=== PATIENT | male | born 1950 | race Caucasian/White ===

== ENCOUNTER 2025-04-24 05:34 | Emergency (ER) | payer OTHER, BC ==
--- OUTSIDE RECORDS SUMMARY | 2025-04-24 05:43 | XMS REPORT | Clinical Summary ---
Author Name Unknown Organization [facility] Address [address] [place] [address] Care Team Providers Care Vulnerability Researcher Name Role Phone Luís Saldana MD Unavailable Ester Iraheta MD Primary Care Provider Lauryn Ramirez RN Unavailable Erick Carson RN Unavailable [phone] Angela Morales MD Unavailable [phone] Althea Iglesias MD Unavailable [phone] Allergies No known active allergies Medications * This document contains information received from the source organization and may not represent a complete record from that organization. acetaminophen-code ine (TYLENOL #3) 300 mg-30 mg tablet Take 1 tablet by mouth every 4 (four) hours as needed. 02/14/20 24 Active atorvastatin (LIPITOR) 40 mg tablet Take 1 tablet (40 mg) by mouth at bedtime. Active cyanocobalamin, vitamin B-12, 1,000 mcg cap Take 1,000 capsules by mouth daily. Active Pepcid 20 mg tablet Take 1 tablet (20 mg) by mouth daily. 11/17/19 25 Active lisinopril (PRINIVIL,ZESTRIL) 10 mg tablet Take 1 tablet (10 mg) by mouth every morning. Active loperamide (IMODIUM) 2 mg capsule Take 1 capsule (2 mg) by mouth as needed. 04/10/20 24 Active magnesium oxide 420 mg tab Take 1 tablet by mouth daily. Active metFORMIN (GLUCOPHAGE) 500 mg tablet Take 1 tablet (500 mg) by mouth 2 (two) times a day with meals. Active OLANZapine (ZyPREXA) 2.5 mg tablet Take 1 tablet (2.5 mg) by mouth every 8 (eight) hours as needed for anxiety (claustrophob ia). 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 Please take 30 minute prior to imaging after notifying imaging staff and repeat if needed prior to scan. Please have caregiver with you. 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 Please take 30 minute prior to imaging after notifying imaging staff and repeat if needed prior to scan. Please have caregiver with you. 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 10 tablet 03/28/20 25 025 Active Problems Problem Noted Date Diagnosed Date Mediastinal lymphadenopathy 02/05/2025 Irritable bowel syndrome with diarrhea Gastroesophageal reflux disease 01/14/2025 Hearing loss 01/14/2025 Hyperlipidemia 01/14/2025 Hypertension 01/14/2025 Type 2 diabetes mellitus 01/14/2025 Neuroendocrine carcinoma, NOS of lower lobe, june g <Right> 01/14/2025 Encounters * This document contains information received from the source organization and may not represent a complete record from that organization. 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> (Primary Dx) 04/05/2025 Orders Only [facility] [address] [place] [address] Main dg, 9th [place] [address] Geena Lucas RN 04/05/2025 Documentation [facility] [address] [place] [address] Main dg, 9th [place] [address] FredoSona bach 04/04/2025 9:24 AM CDT - 04/04/2025 11:59 PM CDT Hospital Encounter [facility] [address] [place] [address] Main dg, 1st [place] [address] Ester Iraheta MD Neuroendocrine carcinoma, NOS of lower lobe, 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> Discharge Disposition: Home 04/04/2025 9:24 AM CDT - 04/04/2025 11:59 PM CDT Hospital Encounter [facility] [address] [place] [address] Main dg, 1st [place] [address] Ester Iraheta MD Alonzo, Andrew, JOSE LUIS Neuroendocrine carcinoma, NOS of lower lobe, 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> (Primary Dx) Discharge Disposition: Home 04/04/2025 8:30 AM CDT Follow-Up [facility] [address] [place] [address] Main dg, 9th [place] [address] Ester Iraheta MD Neuroendocrine carcinoma, NOS of lower lobe, 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> (Primary Dx) 04/04/2025 7:14 AM CDT - 04/04/2025 9:23 AM CDT Hospital Encounter [facility] [address] [place] [address] Ester Iraheta MD Neuroendocrine carcinoma, NOS of lower lobe, 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> Discharge Disposition: Home 04/04/2025 Orders Only [facility] [address] Main Bldg, 9th [place] [address] Geena Lucas RN 04/04/2025 Orders Only [facility] [address] Main Bldg, 9th [place] [address] Willis Davenport, Serge 04/04/2025 Orders Only [facility] [address] Main Bldg, 9th [place] [address] Herminia Santiago 04/04/2025 Travel 03/30/2025 Orders Only [facility] [address] Main Bldg, 9th [place] [address] Latonya Mayo APRN 03/29/2025 Orders Only [facility] [address] Main Bldg, 9th [place] [address] Sona Yoo 03/29/2025 Orders Only [facility] [address] Main Bldg, 9th [place] [address] Sona Yoo 03/29/2025 Orders Only [facility] [address] Main Bldg, 9th [place] [address] Sona Yoo 03/29/2025 Orders Only [facility] [address] Main Bldg, 9th [place] [address] John Tirado 03/29/2025 Orders Only [facility] [address] [place] [address] Main [facility], 9th [place] [address] Sona Yoo Neuroendocrine carcinoma, NOS of lower lobe, 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> (Primary Dx) 03/29/2025 Orders Only [facility] [address] [place] [address] Main [facility], 9th [place] [address] Sona Yoo 03/28/2025 11:33 AM CDT Hospital Encounter [facility] [address] [place] [address], 2nd [place] [address] Ester Iraheta MD Angeles, Ria Gatchalian, RN Neuroendocrine carcinoma, NOS of lower lobe, 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> (Primary Dx) Discharge Disposition: Home 03/28/2025 11:30 AM CDT Follow-Up [facility] [address] [place] [address], 9th [place] [address] Ester Iraheta MD Neuroendocrine carcinoma, NOS of lower lobe, 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> (Primary Dx) 03/28/2025 11:12 AM CDT - 03/28/2025 11:32 AM CDT Hospital Encounter [facility] [address] [place] [address], 8th [place] [address] Ester Iraheta MD Yu, Laurel Campbell, tamale maker Disposition: Home 03/28/2025 9:17 AM CDT - 03/28/2025 11:11 AM CDT Hospital Encounter [facility] [address] [place] [address], 8th [place] [address] Ester Iraheta MD Yu, Laurel Campbell, RN Encounter for adjustment and management of vascular access device (Primary Dx) Discharge Disposition: Home 03/28/2025 8:00 AM CDT - 03/28/2025 9:16 AM CDT Hospital Encounter [facility] [address] [place] [address] Ester Iraheta MD Neuroendocrine carcinoma, NOS of lower lobe, 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> Discharge Disposition: Home 03/28/2025 5:59 AM CDT - 03/28/2025 7:59 AM CDT Hospital Encounter [facility] [address] Main Bldg, 3rd [place] [address] Ester Iraheta MD Neuroendocrine carcinoma, NOS of lower lobe, 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> Discharge Disposition: Home 03/28/2025 Orders Only [facility] [address] Main Bldg, 9th [place] [address] Sona Yoo 03/28/2025 Documentation [facility] [address] Main Bldg, 9th [place] [address] Sona Yoo 03/28/2025 Orders Only [facility] [address] Main Bldg, 9th [place] [address] Latonya Mayo APRN Loss of appetite (Primary Dx) 03/28/2025 Travel 03/27/2025 Orders Only [facility] [address] Main Bldg, 9th [place] [address] Sona Yoo Neuroendocrine carcinoma, NOS of lower lobe, 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> (Primary Dx) 03/26/2025 Orders Only [facility] [address] Main Bldg, 9th [place] [address] Latonya Mayo APRN 03/26/2025 Orders Only [facility] [address] Main Bldg, 9th [place] [address] Chioma Sanchez Neuroendocrine carcinoma, NOS of lower lobe, 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> (Primary Dx) 03/23/2025 Documentation [facility] [address] Main Bldg, 9th [place] [address] Sona Yoo 03/23/2025 Orders Only [facility] [address] Main Bldg, 9th [place] [address] Geena Lucas RN 03/22/2025 [facility] [address] Main Bldg, 9th [place] [address] Latonya Mayo APRN Follow-up 03/16/2025 Orders Only [facility] [address] Main Bldg, 9th [place] [address] Ester Iraheta MD Neuroendocrine carcinoma, NOS of lower lobe, 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> 03/16/2025 Orders Only [facility] [address] Main Bldg, 9th [place] [address] Latonya Mayo APRN Neuroendocrine carcinoma, NOS of lower lobe, 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> 03/07/2025 7:45 AM CDT - 03/07/2025 9:29 AM CDT Hospital Encounter [facility] [address] [facility] [place] [address] Ester Iraheta MD Neuroendocrine carcinoma, NOS of lower lobe, 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> Discharge Disposition: Home 03/07/2025 Documentation [facility] [address] [facility] Main Bldg, 9th Floor Elevator B [place] [id number] Sona Yoo 03/07/2025 Documentation [facility] [address] [facility] Main Bldg, 9th Floor Elevator [address] [place] [id number] Sona Yoo 03/07/2025 Orders Only [facility] [facility] Main Bldg, 9th [place] [address] Ester Iraheta MD Neuroendocrine carcinoma, NOS of lower lobe, 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> (Primary Dx) 03/07/2025 Orders Only [facility] [address] [facility] [address] Main Bldg, 9th [place] [address] Willis Davenport, PharmD 03/07/2025 Travel 03/05/2025 Documentation [facility] [address] [facility] Main Bldg, 9th [place] [address] John Tirado 02/28/2025 2:30 PM CDT Follow-Up [facility] [address] Main Bldg, 9th [place] [address] Ester Iraheta MD Neuroendocrine carcinoma, NOS of lower lobe, 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> 02/28/2025 8:49 AM CDT - 02/28/2025 11:59 PM CDT Hospital Encounter [facility] [address] [place] [address], [facility] [place] [address] Ester Iraheta MD Neuroendocrine carcinoma, NOS of lower lobe, 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> Discharge Disposition: Home 02/28/2025 8:48 AM CDT Hospital Encounter [facility] [address] [place] [address], [facility] [place] [address] Ester Iraheta MD Palaganas-Vilori a, Antonietta, RN Neuroendocrine carcinoma, NOS of lower lobe, 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> Discharge Disposition: Home 02/28/2025 8:23 AM CDT - 02/28/2025 8:47 AM CDT Hospital Encounter [facility] [address] [place] [address] Ester Iraheta MD Neuroendocrine carcinoma, NOS of lower lobe, 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> Discharge Disposition: Home 02/28/2025 Travel 02/21/2025 9:47 AM CDT - 02/21/2025 11:59 PM CDT Hospital Encounter [facility] [address] [place] [address], [facility] [place] [address] Ester Iraheta MD Neuroendocrine carcinoma, NOS of lower lobe, 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> Discharge Disposition: Home 02/21/2025 9:47 AM CDT - 02/21/2025 11:59 PM CDT Hospital Encounter [facility] [address] [place] [address], [facility] [place] [address] Ester Iraheta MD Gellang, Adrian B Jr., RN Neuroendocrine carcinoma, NOS of lower lobe, 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> Discharge Disposition: Home 02/21/2025 9:32 AM CDT - 02/21/2025 9:46 AM CDT Hospital Encounter [facility] [address] [place] [address] Ester Iraheta MD Neuroendocrine carcinoma, NOS of lower lobe, 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> Discharge Disposition: Home 02/21/2025 Orders Only [facility] [address] Main Bldg, 9th [place] [address] Nelli Gamez APRN Neuroendocrine carcinoma, NOS of lower lobe, 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> (Primary Dx) 02/21/2025 Documentation [facility] [address] Main Bldg, 9th [place] [address] Sona Yoo 02/21/2025 Travel 02/17/2025 7:24 AM CDT - 02/17/2025 11:59 PM CDT Hospital Encounter [facility] [address] Main Bldg, 2nd [place] [address] Ester Iraheta MD Neuroendocrine carcinoma, NOS of lower lobe, 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> Discharge Disposition: Home 02/17/2025 Documentation [facility] [address] Main Bldg, 9th [place] [address] Sona Yoo 02/16/2025 Telephone [facility] [address] Main Bldg, 9th [place] [address] Erick Carson, RN Nurse Navigation 02/16/2025 Orders Only [facility] [address] Main Bldg, 9th [place] [address] Lulú Santos, RN 02/16/2025 Orders Only [facility] [address] Main Bldg, 9th [place] [address] Lulú Santos, RN 02/15/2025 Documentation [facility] [address] Main Bldg, 9th [place] [address] Sona Yoo 02/15/2025 Documentation [facility] [address] [place] [address] Main [facility], 9th [place] [address] Lulú Santos, JOSE LUIS 02/15/2025 Orders Only [facility] [address] [place] [address] Main [facility], 9th [place] [address] Lulú Santos, JOSE LUIS 02/14/2025 10:00 AM CDT Follow-Up [facility] [address] [place] [address] Main [facility], 9th [place] [address] Ester Iraheta MD Neuroendocrine carcinoma, NOS of lower lobe, 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> (Primary Dx) 02/14/2025 9:48 AM CDT - 02/14/2025 11:59 PM CDT Hospital Encounter [facility] [address] [place] [address] Main [facility], 1st [place] [address] Ester Iraheta MD Neuroendocrine carcinoma, NOS of lower lobe, 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> Discharge Disposition: Home 02/14/2025 9:48 AM CDT - 02/14/2025 11:59 PM CDT Hospital Encounter [facility] [address], 1st [place] [address] Ester Iraheta MD Le, Nica Q RN Neuroendocrine carcinoma, NOS of lower lobe, 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> (Primary Dx) Discharge Disposition: Home 02/14/2025 8:06 AM CDT - 02/14/2025 9:47 AM CDT Hospital Encounter [facility] [address] [place] [address] Main [facility], 2nd [place] [address] Ester Iraheta MD Neuroendocrine carcinoma, NOS of lower lobe, 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> Discharge Disposition: Home 02/14/2025 8:06 AM CDT - 02/14/2025 9:47 AM CDT Hospital Encounter [facility] [address] [place] [address] Ester Iraheta MD Neuroendocrine carcinoma, NOS of lower lobe, 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> Discharge Disposition: Home 02/14/2025 Orders Only [facility] [address] Main Bldg, 9th [place] [address] Lulú Santos, RN Neuroendocrine carcinoma, NOS of lower lobe, 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> (Primary Dx) 02/14/2025 Orders Only [facility] [address] Main Bldg, 9th [place] [address] Lulú Santos, RN 02/14/2025 Orders Only [facility] [address] Main Bldg, 9th [place] [address] Lulú Santos, RN 02/14/2025 Orders Only [facility] [address] Main Bldg, 9th [place] [address] Lulú Santos, RN 02/14/2025 Travel 02/13/2025 Orders Only [facility] [address] Main Bldg, 9th [place] [address] Lulú Santos, RN Neuroendocrine carcinoma, NOS of lower lobe, 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> (Primary Dx) 02/13/2025 Telephone [facility] [address] Main Bldg, 9th [place] [address] Erick Carson RN Nurse Navigation 02/13/2025 Orders Only [facility] [address] Main Bldg, 9th [place] [address] Giulia Mendoza MD 02/13/2025 Documentation [facility] [address] Main Bldg, 9th [place] [address] Lulú Santos, RN 02/13/2025 Orders Only [facility] [address] Main Bldg, 9th [place] [address] Sona Yoo 02/13/2025 Orders Only [facility] [address] Main Bldg, 9th [place] [address] Lulú Santos, RN 02/12/2025 Orders Only [facility] 4th [place] [address] Eunice Morales PA Preprocedural laboratory examination (Primary Dx) 02/12/2025 Orders Only [facility] [address], 9th [place] [address] Nelli Gamez APRN Neuroendocrine carcinoma, NOS of lower lobe, 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> (Primary Dx) 02/12/2025 Orders Only [facility] [address] Main Bldg, 9th [place] [address] Nelli Gamez APRN Neuroendocrine carcinoma, NOS of lower lobe, 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> (Primary Dx) 02/08/2025 2:24 PM CDT Anesthesia Event [facility] - Pulmonology Procedures [address] [facility] Main Bldg, 6th [place] [address] Diana Centeno MD 02/08/2025 1:30 PM CDT - 02/08/2025 3:00 PM CDT Surgery [facility] [address] [facility] Main Bldg, 6th [place] [address] Althea Iglesias MD BRONCHOSCOPY WITH EBUS 3 OR MORE NODES 02/08/2025 12:15 PM CDT - 02/08/2025 4:48 PM CDT Hospital Encounter [facility] - Pulmonology Procedures [address], 6th [place] [address] Althea Iglesias MD Neuroendocrine carcinoma, NOS of lower lobe, 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>; Mediastinal lymphadenopathy Discharge Disposition: Home 02/08/2025 9:04 AM CDT - 02/08/2025 12:14 PM CDT Hospital Encounter [facility] [address] [place] [address] Adam Segovia APRN Encounter for preprocedural laboratory examination Discharge Disposition: Home 02/08/2025 9:00 AM CDT Follow-Up [facility] [address] [place] [address], 9th [place] [address] Diony Watkins MD Neuroendocrine carcinoma, NOS of lower lobe, 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> 02/08/2025 7:00 AM CDT - 02/08/2025 9:03 AM CDT Hospital Encounter [facility] [address] [place] [address] Ester Iraheta MD Neuroendocrine carcinoma, NOS of lower lobe, 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> Discharge Disposition: Home 02/08/2025 Travel 02/07/2025 8:00 AM CDT POEM Appointments [facility] [address] [place] [address], 6th [place] [address] Ester Iraheta MD Encounter for preprocedural laboratory examination (Primary Dx) 02/07/2025 Orders Only [facility] [address] [place] [address], 9th [place] [address] Lulú Santos, JOSE LUIS 02/07/2025 Orders Only [facility] [address] [place] [address] Main [facility], 9th [place] [address] Lulú Santos, RN Neuroendocrine carcinoma, NOS of lower lobe, 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> (Primary Dx) 02/06/2025 3:30 PM CDT Consult [facility] - Pulmonology Medicine [address] [place] [address] Main [facility], 6th [place] [address] Althea Iglesias MD Mediastinal lymphadenopathy (Primary Dx); Neuroendocrine carcinoma, NOS of lower lobe, 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> 02/06/2025 Orders Only [facility] On[facility] [address] [place] [address] Main dg, 9th [place] [address] Lulú Santos, RN Neuroendocrine carcinoma, NOS of lower lobe, 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> (Primary Dx) 02/06/2025 Travel 02/05/2025 11:59 PM CDT Anesthesia Event [facility] [address] [place] [address] Main dg, 6th [place] [address] Nehal Diana, RN 02/05/2025 Prep for Procedure [facility] [address] [place] [address] Main dg, 6th Floor Elevator C [place], [place] [phone] Sandeep Garcia, RAT TRAPPER Neuroendocrine carcinoma, NOS of lower lobe, 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> (Primary Dx); Mediastinal lymphadenopathy 02/01/2025 10:04 AM CDT - 02/01/2025 11:59 PM CDT Hospital Encounter [facility] [address] [place] [address] Main dg, 7th [place] [address] Angela Morales MD Medical examination of participant in clinical research (Primary Dx); Neuroendocrine carcinoma, NOS of lower lobe, 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> Discharge Disposition: Home 02/01/2025 10:00 AM CDT Follow-Up [facility] [address] [place] [address] Main [facility], 9th Floor Elevator [address] [place], [place] [id number] Ester Iraheta MD Neuroendocrine carcinoma, NOS of lower lobe, 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> 02/01/2025 7:29 AM CDT - 02/01/2025 10:03 AM CDT Hospital Encounter [facility] [address] [place] [address] Main dg, 6th Floor Elevator C [place], [place] [phone] Ester Iraheta MD Neuroendocrine carcinoma, NOS of lower lobe, 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> Discharge Disposition: Home 02/01/2025 Orders Only [facility] [address] [place] [address] Main dg, 9th [place] [address] Nelli Gamez APRN Neuroendocrine carcinoma, NOS of lower lobe, 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> (Primary Dx) 02/01/2025 Orders Only [facility] [address] [place] [address], 9th [place] [address] Lulú Santos, RN Neuroendocrine carcinoma, NOS of lower lobe, 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> (Primary Dx) 02/01/2025 Travel 01/31/2025 Orders Only [facility] [address] [place] [address], 9th [place] [address] Lulú Santos, JOSE LUIS Neuroendocrine carcinoma, NOS of lower lobe, 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> (Primary Dx) 01/26/2025 1:30 PM CDT Ancillary Procedure PET Imaging [address] [place] [address], 6th [place] [address] Nelli Gamez APRN Neuroendocrine carcinoma, NOS of lower lobe, 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> 01/26/2025 11:57 AM CDT - 01/26/2025 11:59 PM CDT Hospital Encounter [facility] [address] [place] [address] Ester Iraheta MD Neuroendocrine carcinoma, NOS of lower lobe, 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> Discharge Disposition: Home 01/25/2025 9:11 AM CDT - 01/25/2025 11:59 PM CDT Hospital Encounter [facility] [address] [place] [address], 2nd [place] [address] Ester Iraheta MD Neuroendocrine carcinoma, NOS of lower lobe, 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> Discharge Disposition: Home 01/25/2025 9:11 AM CDT - 01/25/2025 11:59 PM CDT Hospital Encounter [facility] [address] [place] [address], 2nd [place] [address] Ester Iraheta MD Neuroendocrine carcinoma, NOS of lower lobe, 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> Discharge Disposition: Home 01/25/2025 9:11 AM CDT - 01/25/2025 11:59 PM CDT Hospital Encounter [facility] Card[facility] [address] [facility] Main dg, 2nd [place] [address] Ester Iraheta MD Neuroendocrine carcinoma, NOS of lower lobe, 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> Discharge Disposition: Home 01/25/2025 6:26 AM CDT - 01/25/2025 9:10 AM CDT Hospital Encounter Interventional Radiology [address] [facility], 4th [place] [address] Ester Iraheta MD [facility] Neuroendocrine carcinoma, NOS of lower lobe, 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> Discharge Disposition: Home 01/25/2025 6:10 AM CDT - 01/25/2025 6:25 AM CDT Hospital Encounter [facility] [address] [place] [address] Eunice Morales PA Cancer Discharge Disposition: Home 01/25/2025 Travel 01/24/2025 Results Follow-Up [facility] [address] [facility] Main Bldg, 9th [place] [address] Nelli Gamez, SHARMILA MRI Brain with and without Contrast 01/23/2025 Orders Only Interventional Radiology [address] [facility], 4th [place] [address] Eunice Morales PA Cancer (Primary Dx) 01/19/2025 Orders Only [facility] [address] [facility] Main Bldg, 9th [place] [address] Lulú Santos RN Neuroendocrine carcinoma, NOS of lower lobe, 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> (Primary Dx) 01/19/2025 Orders Only [facility] [address] Main Bldg, 9th [place] [address] Lulú Santos RN 01/19/2025 Documentation [facility] [address] Main Bldg, 9th [place] [address] Lulú Santos RN 01/18/2025 1:45 PM CDT Ancillary Procedure [facility] [address] [address] Nelli Gamez APRN Neuroendocrine carcinoma, NOS of lower lobe, 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> 01/17/2025 Orders Only [facility] - Medical Oncology [facility] Main [address]ldg, 9th [place] [address] Ester Iraheta MD 01/17/2025 Telephone [facility] [address] [place], [place] [address] Main dg, 9th [place] [address] Erick Carson RN Nurse Navigation 01/16/2025 Telephone [facility] [place] - Medical Oncology [address] [place], [place] [address] Main [facility], 9th [place] [address] Lauryn Ramirez RN 01/15/2025 1:30 PM CDT - 01/15/2025 11:59 PM CDT Hospital Encounter [facility] [address] [place], [place] [address] [place] [address] Nelli Gamez APRN Neuroendocrine carcinoma, NOS of lower lobe, lung <Right> Discharge Disposition: Home 01/15/2025 10:30 AM CDT Office Visit [facility] [address] [place], [place] [address] Main Bldg, 9th [place] [address] Ester Iraheta MD Neuroendocrine carcinoma, NOS of lower lobe, lung <Right> (Primary Dx) 01/15/2025 Documentation [facility] Main Bldg, 9th [place] [address] Eriberto Siu Jr. 01/15/2025 Travel 01/14/2025 Orders Only [facility] Oncology [facility] Main Bldg, 9th [place] [address] Vera Nelli Edie, RAT TRAPPER 01/10/2025 Lab Requisition [facility] Eriberto Montes MD Gallego Attis, Maria, MD 01/10/2025 [facility] [address] [place] [address] Main Bl, 9th [place] [address] Lauryn Ramirez, RN Nurse Navigation; Appointment 01/08/2025 2:00 PM CDT NPR [facility] PATIENT ACCESS Ester Iraheta MD 01/05/2025 9:25 PM CDT Ancillary Procedure [facility] [address] [place] [address] Ester Iraheta MD Cancer 01/05/2025 9:20 PM CDT Ancillary Procedure [facility] [address] [place] [address] Ester Iraheta MD Cancer 01/05/2025 9:15 PM CDT Ancillary Procedure [facility] [address] [place] [address] Ester Iraheta MD Cancer 01/05/2025 9:10 PM CDT Ancillary Procedure [facility] [address] [place] [address] Ester Iraheta MD Cancer 01/05/2025 9:05 PM CDT Ancillary Procedure [facility] [address] [place] [address] Ester Iraheta MD Cancer 01/05/2025 9:00 PM CDT Ancillary Procedure [facility] [address] [place] [address] Ester Iraheta MD Cancer 01/05/2025 8:55 PM CDT Ancillary Procedure [facility] [address] [place] [address] Ester Iraheta MD Cancer 01/05/2025 8:50 PM CDT Ancillary Procedure [facility] [address] [place] [address] Ester Iraheta MD Cancer 01/05/2025 8:45 PM CDT Ancillary Procedure [facility] [address] [place] [address] Ester Iraheta MD Cancer 01/05/2025 8:40 PM CDT Ancillary Procedure [facility] [address] [place] [address] Ester Iraheta MD Cancer 01/05/2025 8:35 PM CDT Ancillary Procedure [facility] [address] [place] [address] Ester Iraheta MD Cancer 01/05/2025 8:30 PM CDT Ancillary Procedure [facility] [address] [place] [address] Ester Iraheta MD Cancer 01/05/2025 8:25 PM CDT Ancillary Procedure [facility] [address] [place] [address] Ester Iraheta MD Cancer 01/05/2025 8:20 PM CDT Ancillary Procedure [facility] [address] [place] [address] Ester Iraheta MD Cancer 01/05/2025 8:15 PM CDT Ancillary Procedure [facility] [address] [place] [address] Ester Iraheta MD Cancer 01/05/2025 8:10 PM CDT Ancillary Procedure [facility] [address] [place] [address] Ester Iraheta MD Cancer 01/05/2025 8:05 PM CDT Ancillary Procedure [facility] [address] [place] [address] Ester Iraheta MD Cancer 01/05/2025 8:00 PM CDT Ancillary Procedure [facility] [address] [place] [address] Ester Iraheta MD Cancer 01/05/2025 Lab Requisition [facility] Eriberto Montes MD Schneider, Juan R Wilkes MD 01/05/2025 Lab Requisition [facility] CENTRAL AP LAB Eriberto Montes MD Schocker, Jason, MD 01/04/2025 Lab Requisition [facility] Eriberto Montes MD Moore, Vika Frye MD 01/03/2025 Documentation [facility] On[facility] [address] [facility] Main Bldg, 9th [place] [address] Lauryn Ramirez, JOSE LUIS 01/02/2025 Telephone [facility] [place] - Medical Oncology [address] [facility] Main Bldg, 9th [place] [address] Lauryn Ramirez, RN Nurse Navigation 01/01/2025 Community Orders [facility] Luís Saldana MD after 04/24/2024 Surgical History Surgery Date Site/Laterality Comments COLONOSCOPY UPPER GASTROINTESTINAL ENDOSCOPY APPENDECTOMY CHOLECYSTECTOMY BACK SURGERY LUNG SURGERY Right right lower INTRAOCULAR LENS INSERTION Bilateral CA [facility] EBUS GUIDED SAMPL 3/> NODE STATION/STRUX 02/08/2025 N/A Procedure: BRONCHOSCOPY WITH EBUS 3 OR MORE NODES; Surgeon: Althea Iglesias MD; Location: MAIN PULM PROC; Service: PULMONARY Medical History Medical History Date Comments Neuroendocrine carcinoma, NO S of lower lobe, lung <Right> 01/14/2025 diagnosed on year of 2023 Hypertension Dependence on supplemental oxygen for sleep apnea for 20 years Type 2 diabetes mellitus Hyperlipidemia Hearing loss Sleep apnea Family History Medical History Relation Name Comments Skin cancer Father Relation Name Status Comments Father Social History Tobacco Use Types Packs/Day Years Used Date Smoking Tobacco: Former Cigarettes 1 60.3 1 964 - 12/13/2023 Smokeless Tobacco: Never Alcohol Use Standard Drinks/Week Comments Yes 14 (1 standard drink = 0.6 oz pu re alcohol) Sex and Gender Information Value Date Recorded Sex Assigned at Male 01/08/2025 2:14 PM CDT Legal Sex Male 4:13 PM CDT Gender Identity Male 01/08/2025 2:14 PM CDT Sexual Orientation Straight 01/08/2025 2: 14 PM CDT Obstetrics History Last Filed Vital Signs Vital Sign Reading Time Taken Comments Blood Pressure 128/68 04/04/2025 8:45 PM CDT Pulse 94 04/04/2025 1:57 PM CDT Temperature 36.7 °C (98.1 °F) 04/04/2025 8:30 PM CD T Respiratory Rate 18 04/04/2025 8:30 PM CDT Oxygen Saturation 93% 04/04/2025 8:30 PM CDT Inhaled Oxygen Concentration - - Weight 74.6 kg (164 lb 7.4 oz) 04/04/2025 1:57 P M CDT Height 168 cm (5' 6.14") 01/26/2025 1:57 PM CDT 168cm Body Mass Index 26.43 01/26/2025 1:57 PM CDT Plan of Treatment Upcoming Encounters Date Type Department Care Team (Late st Contact Info) Description 04/27/2025 8:00 AM CDT Appointment [facility] [address] [place] [address] Ester Iraheta MD [address] [place] [phone] [email or web address] org 04/27/2025 9:00 AM CDT Follow-Up [facility] - [facility] Oncology [address] [place] [address], 9th [place] [address] Ester Iraheta MD [address] [place] [address] [email or web address] org 04/27/2025 11:15 AM CDT Appointment [facility] [address] [place] [address], 2nd [place] [address] Ester Iraheta MD [address] [place] [address] [email or web address]. org 04/27/2025 11:15 AM CDT Appointment [facility] [address] [place] [address], 2nd [place] [address] Ester Iraheta MD [address] [place] [address] [email or web address]. [facility] 05/18/2025 7:[address] Imaging and Diagnostic Imaging [address] [place] [address], 3rd [place] [address] Ester Iraheta MD [address] [place] [address] [email or web address]. [facility] 05/18/2025 10:30 AM CDT Appointment [facility] [address] [place] [address] Ester Iraheta MD [address] [place] [address] [email or web address]. [email or web address] 05/18/2025 11:30 AM CDT Follow-Up [facility] Oncology [address] [place] [address], 9th [place] [address] Ester Iraheta MD [address] [place] [address] [email or web address]. org 05/18/2025 12:45 PM CDT Appointment [facility] [address] [place] [address], 1st [place] [address] Ester Iraheta MD [address] [place] [address] [email or web address]. org 06/08/2025 8:30 AM CDT Appointment [facility] [address] [place] [address] Ester Iraheta MD [address] [place] [phone] [email or web address]. org 06/08/2025 9:30 AM CDT Follow-Up [facility] Oncology [address] [place] [address], 9th [place] [address] Ester Iraheta MD [address] [place] [address] [email or web address]. [email or web address] 06/08/2025 10:30 AM CDT Appointment [facility] [address] [place] [address], 1st [place] [address] Ester Iraheta MD [address] [place] [phone] [email or web address]. org 06/29/2025 8:30 AM CDT Appointment [facility] [address] [place] [address] Ester Iraheta MD [address] [place] [address] [email or web address]. org 06/29/2025 9:30 AM CDT Follow-Up [facility] [place] - Medical Oncology [address] [place] [address], 9th [place] [address] Ester Iraheta MD [address] [place] [address] [email or web address]. org 06/29/2025 10:45 AM CDT Appointment [facility] [address] [place] [address], 1st [place] [address] Ester Iraheta MD [address] [place] [address] [email or web address]. [email or web address] 07/20/2025 8:30 AM PAINTER SET Appointment [facility] [address] [place] [address] Ester Iraheta MD [address] [place] [address] [email or web address]. [email or web address] 07/20/2025 9:30 AM PAINTER SET Follow-Up [facility] Oncology [address] [place] [address], 9th [place] [address] Ester Iraheta MD [address] [place] [address] [email or web address]. [email or web address] 07/20/2025 11:15 AM PAINTER SET Appointment [facility] [address] [place] [address], 1st [place] [address] Ester Iraheta MD [address] [place] [phone] [email or web address]. [email or web address] 08/10/2025 9:00 AM PAINTER SET Appointment [facility] [address] [place] [address] Ester Iraheta MD [address] [place] [address] [email or web address]. [facility] 08/10/2025 10:00 AM PAINTER SET Follow-Up [facility] [place] - Medical Oncology [address] [place] [address], 9th [place] [address] Ester Iraheta MD [address] [place] [phone] [email or web address]. [email or web address] 08/10/2025 11:00 AM PAINTER SET Appointment [facility] [address] [place] [address], 1st [place] [address] Ester Iraheta MD [address] [place] [phone] [email or web address]. [email or web address] 08/31/2025 9:00 AM PAINTER SET Appointment [facility] [address] [place] [address] Ester Iraheta MD [address] [place] [phone] [email or web address]. [facility] 08/31/2025 10:00 AM PAINTER SET Follow-Up [facility] Oncology [address] [place] [address], 9th [place] [address] Ester Iraheta MD [address] [place] [address] [email or web address]. [email or web address] 08/31/2025 11:15 AM PAINTER SET Appointment [facility] [address] [place] [address], 1st [place] [address] Ester Iraheta MD [address] [place] [address] [email or web address]. [facility] 09/21/2025 9:00 AM PAINTER SET Appointment [facility] [address] [place] [address] Ester Iraheta MD [address] [place] [phone] [email or web address]. [facility] 09/21/2025 10:00 AM PAINTER SET Follow-Up [facility] [place] - Medical Oncology [address] [place] [address], 9th [place] [address] Ester Iraheta MD [address] [place] [address] [email or web address]. [email or web address] 09/21/2025 11:00 AM PAINTER SET Appointment [facility] [address] [place] [address], 1st [place] [address] Ester Iraheta MD [address] [place] [phone] [email or web address]. [facility] 10/12/2025 9:00 AM PAINTER SET Appointment [facility] [address] [place] [address] Ester Iraheta MD [address] [place] [address] [email or web address]. [facility] 10/12/2025 10:00 AM PAINTER SET Follow-Up [facility] On[facility] [address] [place] [address], 9th [place] [address] Ester Iraheta MD [address] [place] [phone] [email or web address]. [facility] 10/12/2025 11:15 AM PAINTER SET Appointment [facility] [address] [place] [address], 1st [place] [address] Ester Iraheta MD [address] [place] [address] [email or web address]. 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 Device Identifier Shelf Expiration Date Model / Serial / Lot Port Chest Procedures Procedure Name Priority Date/Time Associated Diagnosis Comments .CBC Routine 04/04/2025 7:39 AM CDT Neuroendocrine carcinoma, NOS of lower lobe, lung <Right> URIC ACID Routine 04/04/2025 7:39 AM CDT Neuroendocrine carcinoma, NOS of lower lobe, lung <Right> PHOSPHORUS LEVEL Routine 04/04/2025 7:39 AM CDT Neuroendocrine carcinoma, NOS of lower lobe, lung <Right> MAGNESIUM LEVEL Routine 04/04/2025 7:39 AM CDT Neuroendocrine carcinoma, NOS of lower lobe, lung <Right> LACTATE DEHYDROGENASE Routine 04/04/2025 7:39 AM CDT Neuroendocrine carcinoma, NOS of lower lobe, lung <Right> CKMB Routine 04/04/2025 7:39 AM CDT Neuroendocrine carcinoma, NOS of lower lobe, lung <Right> CREATINE KINASE Routine 04/04/2025 7:39 AM CDT Neuroendocrine carcinoma, NOS of lower lobe, lung <Right> FRACTIONATED BILIRUBIN Routine 7:39 AM CDT Neuroendocrine carcinoma, NOS of lower lobe, lung <Right> COMPLETE BLOOD COUNT W/ DIFFERENTIAL Routine 04/04/2025 7:39 AM CDT Neuroendocrine carcinoma, NOS of lower lobe, lung <Right> COMPREHENSIVE METABOLIC PANEL Routine 04/04/2025 7:39 AM CDT Neuroendocrine carcinoma, NOS of lower lobe, lung <Right> QIAC SERVICES Routine 03/28/2025 11:02 AM CDT Neuroendocrine carcinoma, NOS of lower lobe, lung <Right> CT CHEST ABDOMEN PELVIS W CONTRAST Routine 03/28/2025 9:16 AM CDT Neuroendocrine carcinoma, NOS of lower lobe, lung <Right> .CBC Routine 03/28/2025 8:11 AM CDT Neuroendocrine carcinoma, NOS of lower lobe, lung <Right> RESEARCH PROTOCOL [id number] Routine 03/28/2025 8:11 AM CDT Neuroendocrine carcinoma, NOS of lower lobe, lung <Right> URIC ACID Routine 03/28/2025 8:11 AM CDT Neuroendocrine carcinoma, NOS of lower lobe, lung <Right> PHOSPHORUS LEVEL Routine 03/28/2025 8:11 AM CDT Neuroendocrine carcinoma, NOS of lower lobe, lung <Right> MAGNESIUM LEVEL Routine 03/28/2025 8:11 AM CDT Neuroendocrine carcinoma, NOS of lower lobe, lung <Right> LACTATE DEHYDROGENASE Routine 03/28/2025 8:11 AM CDT Neuroendocrine carcinoma, NOS of lower lobe, lung <Right> CKMB Routine 03/28/2025 8:11 AM CDT Neuroendocrine carcinoma, NOS of lower lobe, lung <Right> CREATINE KINASE Routine 03/28/2025 8:11 AM CDT Neuroendocrine carcinoma, NOS of lower lobe, lung <Right> FRACTIONATED BILIRUBIN Routine 8:11 AM CDT Neuroendocrine carcinoma, NOS of lower lobe, lung <Right> COMPLETE BLOOD COUNT W/ DIFFERENTIAL Routine 03/28/2025 8:11 AM CDT Neuroendocrine carcinoma, NOS of lower lobe, lung <Right> COMPREHENSIVE METABOLIC PANEL Routine 03/28/2025 8:11 AM CDT Neuroendocrine carcinoma, NOS of lower lobe, lung <Right> POC CREATININE Routine 03/28/2025 7:59 AM CDT .CBC Routine 03/07/2025 8:31 AM CDT Neuroendocrine carcinoma, NOS of lower lobe, lung <Right> URIC ACID Routine 03/07/2025 8:31 AM CDT Neuroendocrine carcinoma, NOS of lower lobe, lung <Right> PHOSPHORUS LEVEL Routine 03/07/2025 8:31 AM CDT Neuroendocrine carcinoma, NOS of lower lobe, lung <Right> MAGNESIUM LEVEL Routine 03/07/2025 8:31 AM CDT Neuroendocrine carcinoma, NOS of lower lobe, lung <Right> LACTATE DEHYDROGENASE Routine 03/07/2025 8:31 AM CDT Neuroendocrine carcinoma, NOS of lower lobe, lung <Right> CKMB Routine 03/07/2025 8:31 AM CDT Neuroendocrine carcinoma, NOS of lower lobe, lung <Right> CREATINE KINASE Routine 03/07/2025 8:31 AM CDT Neuroendocrine carcinoma, NOS of lower lobe, lung <Right> FRACTIONATED BILIRUBIN Routine 8:31 AM CDT Neuroendocrine carcinoma, NOS of lower lobe, lung <Right> COMPLETE BLOOD COUNT W/ DIFFERENTIAL Routine 03/07/2025 8:31 AM CDT Neuroendocrine carcinoma, NOS of lower lobe, lung <Right> COMPREHENSIVE METABOLIC PANEL Routine 03/07/2025 8:31 AM CDT Neuroendocrine carcinoma, NOS of lower lobe, lung <Right> .CBC Routine 02/28/2025 8:41 AM CDT Neuroendocrine carcinoma, NOS of lower lobe, lung <Right> URIC ACID Routine 02/28/2025 8:41 AM CDT Neuroendocrine carcinoma, NOS of lower lobe, lung <Right> PHOSPHORUS LEVEL Routine 02/28/2025 8:41 AM CDT Neuroendocrine carcinoma, NOS of lower lobe, lung <Right> MAGNESIUM LEVEL Routine 02/28/2025 8:41 AM CDT Neuroendocrine carcinoma, NOS of lower lobe, lung <Right> LACTATE DEHYDROGENASE Routine 02/28/2025 8:41 AM CDT Neuroendocrine carcinoma, NOS of lower lobe, lung <Right> CKMB Routine 02/28/2025 8:41 AM CDT Neuroendocrine carcinoma, NOS of lower lobe, lung <Right> CREATINE KINASE Routine 02/28/2025 8:41 AM CDT Neuroendocrine carcinoma, NOS of lower lobe, lung <Right> FRACTIONATED BILIRUBIN Routine 8:41 AM CDT Neuroendocrine carcinoma, NOS of lower lobe, lung <Right> COMPLETE BLOOD COUNT W/ DIFFERENTIAL Routine 02/28/2025 8:41 AM CDT Neuroendocrine carcinoma, NOS of lower lobe, lung <Right> COMPREHENSIVE METABOLIC PANEL Routine 02/28/2025 8:41 AM CDT Neuroendocrine carcinoma, NOS of lower lobe, lung <Right> .CBC Routine 02/21/2025 9:43 AM CDT Neuroendocrine carcinoma, NOS of lower lobe, lung <Right> URIC ACID Routine 02/21/2025 9:43 AM CDT Neuroendocrine carcinoma, NOS of lower lobe, lung <Right> PHOSPHORUS LEVEL Routine 02/21/2025 9:43 AM CDT Neuroendocrine carcinoma, NOS of lower lobe, lung <Right> MAGNESIUM LEVEL Routine 02/21/2025 9:43 AM CDT Neuroendocrine carcinoma, NOS of lower lobe, lung <Right> LACTATE DEHYDROGENASE Routine 02/21/2025 9:43 AM CDT Neuroendocrine carcinoma, NOS of lower lobe, lung <Right> CKMB Routine 02/21/2025 9:43 AM CDT Neuroendocrine carcinoma, NOS of lower lobe, lung <Right> CREATINE KINASE Routine 02/21/2025 9:43 AM CDT Neuroendocrine carcinoma, NOS of lower lobe, lung <Right> FRACTIONATED BILIRUBIN Routine 9:43 AM CDT Neuroendocrine carcinoma, NOS of lower lobe, lung <Right> COMPLETE BLOOD COUNT W/ DIFFERENTIAL Routine 02/21/2025 9:43 AM CDT Neuroendocrine carcinoma, NOS of lower lobe, lung <Right> COMPREHENSIVE METABOLIC PANEL Routine 02/21/2025 9:43 AM CDT Neuroendocrine carcinoma, NOS of lower lobe, lung <Right> VERIFY CATHETER TIP PLACEMENT Routine 02/14/2025 10:00 AM CDT Neuroendocrine carcinoma, NOS of lower lobe, lung <Right> .CBC Routine 02/14/2025 8:18 AM CDT Neuroendocrine carcinoma, NOS of lower lobe, lung <Right> URIC ACID Routine 02/14/2025 8:18 AM CDT Neuroendocrine carcinoma, NOS of lower lobe, lung <Right> PHOSPHORUS LEVEL Routine 02/14/2025 8:18 AM CDT Neuroendocrine carcinoma, NOS of lower lobe, lung <Right> MAGNESIUM LEVEL Routine 02/14/2025 8:18 AM CDT Neuroendocrine carcinoma, NOS of lower lobe, lung <Right> LACTATE DEHYDROGENASE Routine 02/14/2025 8:18 AM CDT Neuroendocrine carcinoma, NOS of lower lobe, lung <Right> CKMB Routine 02/14/2025 8:18 AM CDT Neuroendocrine carcinoma, NOS of lower lobe, lung <Right> CREATINE KINASE Routine 02/14/2025 8:18 AM CDT Neuroendocrine carcinoma, NOS of lower lobe, lung <Right> FRACTIONATED BILIRUBIN Routine 8:18 AM CDT Neuroendocrine carcinoma, NOS of lower lobe, lung <Right> COMPLETE BLOOD COUNT W/ DIFFERENTIAL Routine 02/14/2025 8:18 AM CDT Neuroendocrine carcinoma, NOS of lower lobe, lung <Right> COMPREHENSIVE METABOLIC PANEL Routine 02/14/2025 8:18 AM CDT Neuroendocrine carcinoma, NOS of lower lobe, lung <Right> CTRC EKG, 12-LEAD Routine 02/14/2025 Neuroendocrine carcinoma, NOS of lower lobe, lung <Right> CTRC EKG, 12-LEAD Routine 02/14/2025 Neuroendocrine carcinoma, NOS of lower lobe, lung <Right> PATHOLOGY BIOPSY INTERPRETATION Routine 02/08/2025 3:39 PM CDT Neuroendocrine carcinoma, NOS of lower lobe, lung <Right> Mediastinal lymphadenopathy CYTOLOGY IMAGE-GUIDED FNA INTERPRETATION Routine 02/08/2025 3:07 PM CDT Neuroendocrine carcinoma, NOS of lower lobe, lung <Right> Mediastinal lymphadenopathy CYTOLOGY IMAGE-GUIDED FNA INTERPRETATION Routine 02/08/2025 3:04 PM CDT Neuroendocrine carcinoma, NOS of lower lobe, lung <Right> Mediastinal lymphadenopathy CYTOLOGY IMAGE-GUIDED FNA INTERPRETATION Routine 02/08/2025 2:51 PM CDT Neuroendocrine carcinoma, NOS of lower lobe, lung <Right> Mediastinal lymphadenopathy CA [facility] EBUS GUIDED SAMPL 3/> NODE STATION/STRUX 02/08/2025 2:24 PM CDT Neuroendocrine carcinoma, NOS of lower lobe, lung <Right> Mediastinal lymphadenopathy POC GLUCOSE SCREEN Routine 02/08/2025 1: 23 PM CDT URINALYSIS WITH MICROSCOPIC IF INDICATED Routine 02/08/2025 9:17 AM CDT Neuroendocrine carcinoma, NOS of lower lobe, lung <Right> .CBC Routine 02/08/2025 9:17 AM CDT Neuroendocrine carcinoma, NOS of lower lobe, lung <Right> URINALYSIS WITH MICROSCOPIC IF INDICATED Routine 02/08/2025 9:17 AM CDT Neuroendocrine carcinoma, NOS of lower lobe, lung <Right> TOTAL PROTEIN Routine 02/08/2025 9:17 AM CDT Neuroendocrine carcinoma, NOS of lower lobe, lung <Right> SODIUM LEVEL Routine 02/08/2025 9:17 AM CDT Neuroendocrine carcinoma, NOS of lower lobe, lung <Right> PROTHROMBIN TIME Routine 02/08/2025 9:17 AM CDT Neuroendocrine carcinoma, NOS of lower lobe, lung <Right> PHOSPHORUS LEVEL Routine 02/08/2025 9:17 AM CDT Neuroendocrine carcinoma, NOS of lower lobe, lung <Right> MAGNESIUM LEVEL Routine 02/08/2025 9:17 AM CDT Neuroendocrine carcinoma, NOS of lower lobe, lung <Right> LACTATE DEHYDROGENASE Routine 02/08/2025 9:17 AM CDT Neuroendocrine carcinoma, NOS of lower lobe, lung <Right> GLUCOSE, RANDOM Routine 02/08/2025 9:17 AM CDT Neuroendocrine carcinoma, NOS of lower lobe, lung <Right> FRACTIONATED BILIRUBIN Routine 9:17 AM CDT Neuroendocrine carcinoma, NOS of lower lobe, lung <Right> CREATININE Routine 02/08/2025 9:17 AM CDT Neuroendocrine carcinoma, NOS of lower lobe, lung <Right> CREATINE KINASE Routine 02/08/2025 9:17 AM CDT Neuroendocrine carcinoma, NOS of lower lobe, lung <Right> COMPLETE BLOOD COUNT W/ DIFFERENTIAL Routine 02/08/2025 9:17 AM CDT Neuroendocrine carcinoma, NOS of lower lobe, lung <Right> CHLORIDE LEVEL Routine 02/08/2025 9:17 AM CDT Neuroendocrine carcinoma, NOS of lower lobe, lung <Right> CALCIUM LEVEL Routine 02/08/2025 9:17 AM CDT Neuroendocrine carcinoma, NOS of lower lobe, lung <Right> BLOOD UREA NITROGEN Routine 02/08/2025 9 :17 AM CDT Neuroendocrine carcinoma, NOS of lower lobe, lung <Right> ASPARTATE AMINOTRANSFERASE Routine 02/08/2025 9:17 AM CDT Neuroendocrine carcinoma, NOS of lower lobe, lung <Right> APTT Routine 02/08/2025 9:17 AM CDT Neuroendocrine carcinoma, NOS of lower lobe, lung <Right> ALKALINE PHOSPHATASE Routine 02/08/2025 9:17 AM CDT Neuroendocrine carcinoma, NOS of lower lobe, lung <Right> ALBUMIN LEVEL Routine 02/08/2025 9:17 AM CDT Neuroendocrine carcinoma, NOS of lower lobe, lung <Right> ALANINE AMINOTRANSFERASE Routine 02/08/2025 9:17 AM CDT Neuroendocrine carcinoma, NOS of lower lobe, lung <Right> URIC ACID Routine 02/08/2025 9:17 AM CDT Neuroendocrine carcinoma, NOS of lower lobe, lung <Right> POTASSIUM LEVEL Routine 02/08/2025 9:17 AM CDT Neuroendocrine carcinoma, NOS of lower lobe, lung <Right> CKMB Routine 02/08/2025 9:17 AM CDT Neuroendocrine carcinoma, NOS of lower lobe, lung <Right> OCT, RETINA - OU - BOTH EYES Routine 02/01/2025 10:43 AM CDT Medical examination of participant in clinical research FUNDUS PHOTOS - OU - BOTH EYES Routine 02/01/2025 10:43 AM CDT Medical examination of participant in clinical research QIAC SERVICES Routine 02/01/2025 10:06 AM CDT Neuroendocrine carcinoma, NOS of lower lobe, lung <Right> ECHOCARDIOGRAM 2D COMPLETE Routine 02/01/2025 8:52 AM CDT Neuroendocrine carcinoma, NOS of lower lobe, lung <Right> PETCT F18 FDG (FLUORODEOXYGLUCOSE) WITHOUT CONTRAST Routine 01/26/2025 4:28 PM CDT Neuroendocrine carcinoma, NOS of lower lobe, lung <Right> URINALYSIS WITH MICROSCOPIC IF INDICATED Routine 01/26/2025 12:13 PM CDT Neuroendocrine carcinoma, NOS of lower lobe, lung <Right> URINALYSIS WITH MICROSCOPIC IF INDICATED Routine 01/26/2025 12:13 PM CDT Neuroendocrine carcinoma, NOS of lower lobe, lung <Right> .CBC Routine 01/26/2025 12:05 PM CDT Neuroendocrine carcinoma, NOS of lower lobe, lung <Right> HIV-1/-2 AG AND AB SCREEN, P Routine 01/26/2025 12:05 PM CDT Neuroendocrine carcinoma, NOS of lower lobe, lung <Right> CKMB Routine 01/26/2025 12:05 PM CDT Neuroendocrine carcinoma, NOS of lower lobe, lung <Right> ALKALINE PHOSPHATASE Routine 01/26/2025 12:05 PM CDT Neuroendocrine carcinoma, NOS of lower lobe, lung <Right> ALANINE AMINOTRANSFERASE Routine 01/26/2025 12:05 PM CDT Neuroendocrine carcinoma, NOS of lower lobe, lung <Right> URIC ACID Routine 01/26/2025 12:05 PM CDT Neuroendocrine carcinoma, NOS of lower lobe, lung <Right> TOTAL PROTEIN Routine 01/26/2025 12:05 PM CDT Neuroendocrine carcinoma, NOS of lower lobe, lung <Right> SODIUM LEVEL Routine 01/26/2025 12:05 PM CDT Neuroendocrine carcinoma, NOS of lower lobe, lung <Right> PROTHROMBIN TIME Routine 01/26/2025 12:0 5 PM CDT Neuroendocrine carcinoma, NOS of lower lobe, lung <Right> POTASSIUM LEVEL Routine 01/26/2025 12:05 PM CDT Neuroendocrine carcinoma, NOS of lower lobe, lung <Right> PHOSPHORUS LEVEL Routine 01/26/2025 12:0 5 PM CDT Neuroendocrine carcinoma, NOS of lower lobe, lung <Right> MAGNESIUM LEVEL Routine 01/26/2025 12:05 PM CDT Neuroendocrine carcinoma, NOS of lower lobe, lung <Right> LACTATE DEHYDROGENASE Routine 01/26/2025 12:05 PM CDT Neuroendocrine carcinoma, NOS of lower lobe, lung <Right> HIV 1 RNA PCR QUANTITATIVE Routine 01/26/2025 12:05 PM CDT Neuroendocrine carcinoma, NOS of lower lobe, lung <Right> HEPATITIS B SURFACE ANTIGEN Routine 01/26/2025 12:05 PM CDT Neuroendocrine carcinoma, NOS of lower lobe, lung <Right> HEPATITIS C VIRUS ANTIBODY Routine 01/26/2025 12:05 PM CDT Neuroendocrine carcinoma, NOS of lower lobe, lung <Right> HEPATITIS B CORE ANTIBODY Routine 01/26/2025 12:05 PM CDT Neuroendocrine carcinoma, NOS of lower lobe, lung <Right> GLUCOSE, RANDOM Routine 01/26/2025 12:05 PM CDT Neuroendocrine carcinoma, NOS of lower lobe, lung <Right> FRACTIONATED BILIRUBIN Routine 12:05 PM CDT Neuroendocrine carcinoma, NOS of lower lobe, lung <Right> CREATININE Routine 01/26/2025 12:05 PM CDT Neuroendocrine carcinoma, NOS of lower lobe, lung <Right> CREATINE KINASE Routine 01/26/2025 12:05 PM CDT Neuroendocrine carcinoma, NOS of lower lobe, lung <Right> COMPLETE BLOOD COUNT W/ DIFFERENTIAL Routine 01/26/2025 12:05 PM CDT Neuroendocrine carcinoma, NOS of lower lobe, lung <Right> CHLORIDE LEVEL Routine 01/26/2025 12:05 PM CDT Neuroendocrine carcinoma, NOS of lower lobe, lung <Right> CALCIUM LEVEL Routine 01/26/2025 12:05 PM CDT Neuroendocrine carcinoma, NOS of lower lobe, lung <Right> BLOOD UREA NITROGEN Routine 01/26/2025 1 2:05 PM CDT Neuroendocrine carcinoma, NOS of lower lobe, lung <Right> ASPARTATE AMINOTRANSFERASE Routine 01/26/2025 12:05 PM CDT Neuroendocrine carcinoma, NOS of lower lobe, lung <Right> APTT Routine 01/26/2025 12:05 PM CDT Neuroendocrine carcinoma, NOS of lower lobe, lung <Right> ALBUMIN LEVEL Routine 01/26/2025 12:05 PM CDT Neuroendocrine carcinoma, NOS of lower lobe, lung <Right> IR US EXTREMITY LIMITED 60 Routine 01/25/2025 8:19 AM CDT Neuroendocrine carcinoma, NOS of lower lobe, lung <Right> PROTHROMBIN TIME Routine 01/25/2025 6:23 AM CDT Cancer EKG, 12-LEAD (SCHEDULED) Routine 01/25/2025 Neuroendocrine carcinoma, NOS of lower lobe, lung <Right> EKG, 12-LEAD (SCHEDULED) Routine 01/25/2025 Neuroendocrine carcinoma, NOS of lower lobe, lung <Right> EKG, 12-LEAD (SCHEDULED) Routine 01/25/2025 Neuroendocrine carcinoma, NOS of lower lobe, lung <Right> MRI BRAIN W WO CONTRAST Routine 01/19/20 25 3:38 PM CDT Neuroendocrine carcinoma, NOS of lower lobe, lung <Right> .CBC Routine 01/15/2025 1:39 PM CDT Neuroendocrine carcinoma, NOS of lower lobe, lung <Right> MAGNESIUM LEVEL Routine 01/15/2025 1:39 PM CDT Neuroendocrine carcinoma, NOS of lower lobe, lung <Right> PHOSPHORUS LEVEL Routine 01/15/2025 1:39 PM CDT Neuroendocrine carcinoma, NOS of lower lobe, lung <Right> THYROID STIMULATING HORMONE Routine 01/15/2025 1:39 PM CDT Neuroendocrine carcinoma, NOS of lower lobe, lung <Right> FREE THYROXINE Routine 01/15/2025 1:39 PM CDT Neuroendocrine carcinoma, NOS of lower lobe, lung <Right> COMPLETE BLOOD COUNT W/ DIFFERENTIAL Routine 01/15/2025 1:39 PM CDT Neuroendocrine carcinoma, NOS of lower lobe, lung <Right> COMPREHENSIVE METABOLIC PANEL Routine 01/15/2025 1:39 PM CDT Neuroendocrine carcinoma, NOS of lower lobe, lung <Right> RESEARCH PROTOCOL [id number] Routine 01/15/2025 1:39 PM CDT Neuroendocrine carcinoma, NOS of lower lobe, lung <Right> OSI PET CT SKULL TO MID THIGH Routine 11/10/2024 4:39 PM CDT Cancer PATHOLOGY OUTSIDE INTERPRETATION Routine 08/11/[address] SKULL TO MID THIGH Routine 07/31/2024 4:39 PM PAINTER SET Cancer OSI CT CHEST ABDOMEN PELVIS Routine 07/12/2024 4:41 PM PAINTER SET Cancer OSI CHEST Routine 05/12/2024 8:50 PM CDT Cancer after 04/24/2024 Results * (ABNORMAL) .CBC (04/04/2025 7:39 AM [facility]) Only the most recent of9 resultswithin the time period is included. White Blood Cell 7.6 4.1 - 10.5 K/uL 04/04/2025 8:00 AM [facility] Red Blood Cell 3.44(L) 4.30 - 6.04 M/uL 04/04/2025 8:00 AM [facility] Hemoglobin 10.9(L) 13.3 - 17.4 g/dL 04/04/2025 8:00 AM [facility] Hematocrit 31.5(L) 39.5 - 51.8 % 04/04/2025 8:00 AM [facility] Mean Cell Volume 92 82 - 99 fL 04/04/2025 8:00 AM [facility] Mean Cell Hemoglobin 31.7 26.6 - 33.2 pg 04/04/2025 8:00 AM [facility] Mean Cell Hemoglobin Concentration 34.6 31.1 - 35.2 g/dL 04/04/2025 8:00 AM [facility] RDW-SD 53.6(H) 37.5 - 49.7 fL 04/04/2025 8:00 AM [facility] Red Cell Diameter Width 16.1(H) 11.6 - 15.5 % 04/04/2025 8:00 AM [facility] Platelet 376 160 - 397 K/uL 04/04/2025 8:00 AM [facility] Mean Platelet Volume 8.9(L) 9.1 - 12.6 fL 04/04/2025 8:00 AM [facility] INRBC 0.0 0.0 - 0.1 /100 WBC 04/04/2025 8:00 AM [facility] Comment: The INRBC value reflects the enumeration of nucleated red blood cells contained in a 200uL sample of whole blood analyzed by the instrument. This value may differ from the NRBC value reported in a manual diff, which is based on a 100 cell differential. Neutrophil % 72.9(H) 43.2 - 72.7 % 04/04/2025 8:00 AM CDT [facility] Lymphocyte % 13.9(L) 16.8 - 46.2 % 04/04/2025 8:00 AM CDT [facility] Monocyte % 10.1 5.1 - 12.5 % 04/04/2025 8:00 AM CDT [facility] Eosinophil % 1.4 0.4 - 6.3 % 04/04/2025 8:00 AM CDT [facility] Basophil % 0.5 0.2 - 1.4 % 04/04/2025 8:00 AM CDT [facility] IGRE % 1.2 0.1 - 1.5 % 04/04/2025 8:00 AM CDT [facility] Comment:The IGRE% includes M etamyelocytes, Myelocytes and Promyelocytes. Neutrophil Abs 5.54 1.95 - 7.25 K/uL 04/04/2025 8:00 AM CDT [facility] Lymphocyte Abs 1.06 1.01 - 3.24 K/uL 04/04/2025 8:00 AM CDT [facility] Monocyte Abs 0.77 0.24 - 0.85 K/uL 04/04/2025 8:00 AM CDT [facility] Eosinophil Abs 0.11 0.02 - 0.50 K/uL 04/04/2025 8:00 AM CDT [facility] Basophil Abs 0.04 0.02 - 0.09 K/uL 04/04/2025 8:00 AM CDT [facility] IG Abs 0.09 0.01 - 0.12 K/uL 04/04/2025 8:00 AM CDT [facility] Blood Venous blood specimen / Unknown Port / Unknown 04/04/2025 7:39 AM CDT 04/04/2025 7:51 AM CDT us Ester Iraheta MD LAB BLOOD ORDERABLES Final Re sult [facility] [address] [place] [address], * Fractionated Bilirubin (04/04/2025 7:39 AM CDT) Only the most recent of8 resultswithin the time period is included. Bilirubin Direct 0.2 0.0 - 0.2 mg/dL 04/04/2025 8:33 AM CDT [facility] Comment:Indocyanine Green (I CG) may cause falsely elevated bilirubin results. Total and direct bilirubin must not be measured from samples containing indocyanine green. Bilirubin Indirect 0.3 0.0 - 1.0 mg/dL 04/04/2025 8:33 AM CDT [facility] Bilirubin Total 0.5 0.0 - 1.2 mg/dL 04/04/2025 8:33 AM CDT [facility] Comment: Indocyanine Green (ICG) may cause falsely elevated bilirubin results. Total and direct bilirubin must not be measured from samples containing indocyanine green. False elevation of total bilirubin can be seen in patients with IgG concentrations above 28 g/L. Indocyanine Green (ICG) may cause falsely elevated bilirubin results. Total and direct bilirubin must not be measured from samples containing indocyanine green. False elevation of total bilirubin can be seen in patients with IgG concentrations above 28 g/L. Blood Venous blood specimen / Unknown Port / Unknown 04/04/2025 7:39 AM CDT 04/04/2025 7:51 AM CDT us Ester Iraheta MD LAB BLOOD ORDERABLES Final Re sult Performing Organization Address City/State/[facility] Co de Phone Number [phone] [place] [address], [place] * (ABNORMAL) Comprehensive Metabolic Panel (04/04/2025 7:39 AM CDT) Only the most recent of7 resultswithin the time period is included. Bilirubin Total 0.5 0.0 - 1.2 mg/dL 04/04/2025 8:33 AM CDT [facility] Comment:Indocyanine Green (I CG) may cause falsely elevated bilirubin results. Total and direct bilirubin must not be measured from samples containing indocyanine green. False elevation of total bilirubin can be seen in patients with IgG concentrations above 28 g/L. eGFR 87 >=60 mL/min/1. 73 sq. m 04/04/2025 8:33 AM [facility] Comment: The eGFRcr is calculated with the 2020 CKD-EPI creatinine equation using creatinine, patient's age, and sex for adults 18 years of age and older. Other factors, especially muscle mass, may affect accuracy and need to be considered. According to the Kidney Disease: Improving Global Outcomes (KDIGO) CKD Work Group 2012 Clinical Practice Guideline, chronic kidney disease (CKD) is defined as the abnormalities of kidney structure or function, present for more than 3 months, with implications for health. CKD should be classified by cause, GFR category, and albuminuria category. KDIGO guidelines provide the following GFR categories. Stage / Description / GFR mL/min/1.73 m2: G1* / Normal or high / >= 90 G2* / Mildly decreased / 60-89 G3a / Mildly to moderately decreased / 45-59 G3b / Moderately to severely decreased / 30-44 G4 / Severely decreased / 15-29 G5 / Kidney failure / <15 *In the absence of evidence of kidney damage, neither G1 nor G2 fulfill criteria for CKD. Tot Protein 6.6 6.4 - 8.3 gm/dL 04/04/2025 8:33 AM T [facility] Calcium Level Total 10.0 8.2 - 10.2 mg/dL 04/04/2025 8:33 AM T [facility] Alkaline Phosphatase 84 40 - 129 U/L 04/04/2025 8:33 AM T [facility] Albumin Level 3.5 3.5 - 5.2 gm/dL 04/04/2025 8:33 AM T [facility] AST 22 <=40 U/L 04/04/2025 8:33 AM T [facility] ALT 28 <=41 U/L 04/04/2025 8:33 AM [facility] Sodium Level 132(L) 136 - 145 mmol/L 04/04/2025 8:33 AM [facility] Potassium Level 4.3 3.4 - 4.5 mmol/L 04/04/2025 8:33 AM [facility] Chloride 98 98 - 107 mmol/L 04/04/2025 8:33 AM [facility] CO2 24 22 - 29 mmol/L 04/04/2025 8:33 AM CDT [facility] Anion Gap 10 4 - 14 mmol/L 04/04/2025 8:33 AM CDT [facility] Creatinine 0.93 0.67 - 1.17 mg/dL 04/04/2025 8:33 AM CDT [facility] BUN 10 6 - 23 mg/dL 04/04/2025 8:33 AM CDT [facility] Glucose Level 109(H) 70 - 99 mg/dL 04/04/2025 8:33 AM CDT [facility] Comment: Effective 03/25/16, the glucose reference intervals have been updated based on [place] [employer] guidelines (Standards of Medical Care in Diabetes 2016. Diabetes Care 2016; 39: S13-S22). Fasting blood glucose: Normal: 70-99 mg/dL Impaired fasting glucose (increased risk for diabetes or pre-diabetes): 100-125 mg/dL Diabetes mellitus: >/=126 mg/dL Random blood glucose: Normal: 70-199 mg/dL Note: Random glucose >100 mg/dL is associated with increased risk for diabetes. Blood Venous blood specimen / Unknown Port / Unknown 04/04/2025 7:39 AM CDT 04/04/2025 7:51 AM CDT us Ester Iraheta MD LAB BLOOD [place]AB[place] [address], * Uric Acid (04/04/2025 7:39 AM CDT) Only the most recent of8 resultswithin the time period is included. Uric Acid 6.3 3.4 - 7.0 mg/dL 04/04/2025 8:33 AM CDT [facility] Blood Venous blood specimen / Unknown Port / Unknown 04/04/2025 7:39 AM CDT 04/04/2025 7:51 AM CDT us Ester Iraheta MD LAB BLOOD ORDERABLES Final Re sult Performing Organization Address [facility] Co de Phone Number [address] [address], [place] * Phosphorus (04/04/2025 7:39 AM CDT) Only the most recent of9 resultswithin the time period is included. Phosphorus Level 3.3 2.5 - 4.5 mg/dL 04/04/2025 8:33 AM CDT [facility] Blood Venous blood specimen / Unknown Port / Unknown 04/04/2025 7:39 AM CDT 04/04/2025 7:51 AM CDT Ester Iraheta MD LAB BLOOD ORDERABLES Final Re sult Performing Organization Address [facility] [place] [address], [place] * Magnesium (04/04/2025 7:39 AM CDT) Only the most recent of9 resultswithin the time period is included. Magnesium Level 1.7 1.6 - 2.6 mg/dL 04/04/2025 8:33 AM CDT [facility] Blood Venous blood specimen / Unknown Port / Unknown 04/04/2025 7:39 AM CDT 04/04/2025 7:51 AM CDT Ester Iraheta MD LAB BLOOD ORDERABLES Final Re sult Performing Organization Address City/[facility]/[place] [address], [place] * LDH (04/04/2025 7:39 AM CDT) Only the most recent of8 resultswithin the time period is included. LDH 172 135 - 225 U/L 04/04/2025 8:33 AM CDT [facility] Blood Venous blood specimen / Unknown Port / Unknown 04/04/2025 7:39 AM CDT 04/04/2025 7:51 AM CDT Narrative [facility] - 04/04/2025 8:33 AM CDT Results greater than 1651 U/L may not be reliable due to matrix effect with extended dilution as it exceeds the heavy repairer's recommended limit. Caution should be exercised when interpreting such values and done in conjunction with clinical context. Ester Iraheta MD LAB BLOOD [place] [address], [place] * CKMB (04/04/2025 7:39 AM CDT) Only the most recent of8 resultswithin the time period is included. CKMB 2.5 <=10.4 ng/mL 04/04/2025 9:17 AM CDT [facility] Blood Venous blood specimen / Unknown Port / Unknown 04/04/2025 7:39 AM CDT 04/04/2025 7:51 AM CDT Ester Iraheta MD LAB BLOOD ORDERABLES Final Re sult Performing Organization Address City/[facility]/[place] [address] * (ABNORMAL) Creatine Kinase (04/04/2025 7:39 AM CDT) Only the most recent of8 resultswithin the time period is included. Creatine Kinase 35(L) 39 - 308 U/L 04/04/2025 9:17 AM CDT [facility] Blood Venous blood specimen / Unknown Port / Unknown 04/04/2025 7:39 AM CDT 04/04/2025 7:51 AM CDT Ester Iraheta MD LAB BLOOD ORDERAB[place] [address] * [facility] (03/28/2025 11:02 AM CDT) Only the most recent of2 resultswithin the time period is included. Anatomical Region Laterality Modality Other 03/28/2025 5:17 PM CDT Impressions 03/28/2025 5:17 PM CDT Tumor metrics have been completed. I personally reviewed these images and agree with the tumor metrics. Narrative 03/28/2025 5:17 PM CDT FULL RESULT: Examination: [facility] on 03/28/2025 17:17 PM Indication:Neuroendocrine carcinoma, NOS of lower lobe, lung <Right> Findings: Tumor metrics have been completed. Procedure Note Kelsea Carlos MD - 03/28/2025 FULL RESULT: Examination: [facility] on 03/28/2025 17:17 PM Indication:Neuroendocrine carcinoma, NOS of lower lobe, lung <Right> Findings: Tumor metrics have been completed. IMPRESSION: Tumor metrics have been completed. I personally reviewed these images andagree with the tumor metrics. us Ester Iraheta MD IMG [facility] ORDERABLES Final Res ult * CT Chest Abdomen Pelvis with Contrast (03/28/2025 9:16 AM CDT) Anatomical Region Laterality Modality Abdomen, Pelvis, Chest Computed Tomography 03/28/2025 10:2 1 AM CDT Impressions 03/28/2025 10:47 AM CDT 1. Stable appearance of the right lower lobectomy. 2. There is new, bilateral airspace disease, suspicious for pneumonia or pneumonitis. An area of clustered nodules in the right upper lobe likely represents small airways infection. 3. There is trace right pleural fluid with a possible low density nodule or focus of fluid in the posterior pleura. Attention on follow-up is recommended. 4. 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 5. Mediastinal and hilar lymph nodes are stable to slightly smaller. Prior pathology demonstrated noncaseating granulomatous inflammation. ACTIONABLE ITEMS/RECOMMENDATIONS*: None. *An Actionable Finding is a finding that may be unrelated to the original reason for imaging but potentially actionable, meaning further investigation may be necessary. The Actionable Findings Vigilance Unit (AFVU) assists medical providers with responding to additional radiologic findings that are unexpected and potentially actionable. Narrative 03/28/2025 10:47 AM CDT FULL RESULT: Examination: CT CHEST ABDOMEN PELVIS W CONTRAST on 03/28/2025 9:16 AM. Clinical History: Neuroendocrine carcinoma, NOS of lower lobe, lung <Right>. Right lower lobectomy in 2023. Indication: Restaging Scans. Comparison: PET/CT 01/26/2025. Technique: CT CHEST ABDOMEN PELVIS W CONTRAST. Findings: CHEST: Support devices: The right chest port terminates in the lower SVC. Lungs and Pleura: There has been a right lower lobectomy. The bronchial stumps are within normal limits. The central airways are otherwise clear. There is mild emphysema. There is new, diffuse bilateral groundglass opacity, greater in the lower lungs. There is a new, small area of clustered nodules in the right upper lobe (image 66). A groundglass nodule in the right upper lobe noted previously has resolved. Trace right pleural fluid is present. There is a small, nodular focus of low density soft tissue or fluid in the right posterior pleura measuring 12 mm (series 301, image 147). Cardiomediastinum: The heart size is normal. There is no pericardial effusion. There is calcific coronary atherosclerosis. Lymph nodes: Enlarged lymph nodes in the mediastinum and paige are stable to slightly smaller. For example, there is a 14 mm right paratracheal lymph node that previously measured 15 mm. There is a 10 mm AP window lymph node that previously measured 12 mm. ABDOMEN AND PELVIS: Hepatobiliary: Within normal limits Spleen: Within normal limits Pancreas: Within normal limits Adrenal Glands: Bilateral adrenal nodularity is stable. Kidneys, Ureters, Bladder: Within normal limits Gastrointestinal Tract: There are diverticula in the descending colon. Contrast reaches the colon. The small bowel is unremarkable. Pelvic Organs: Coarse calcification is again noted in the prostate gland. Peritoneum/Retroperitoneum: There is no free fluid in the abdomen or pelvis. There is stable, mild ectasia of the infrarenal abdominal aorta. Lymph Nodes: There are no enlarged lymph nodes in the abdomen or pelvis. MUSCULOSKELETAL: The sclerotic lesion in the right sacrum is stable. There is a stable sclerotic lesion in the T6 vertebral body. There is a stable lucent lesion with a compression deformity in the T9 vertebral body. Procedure Note Max, Trent, MD - 03/28/2025 FULL RESULT: Examination: CT CHEST ABDOMEN PELVIS W CONTRAST on 03/28/2025 9:16 AM. Clinical History: Neuroendocrine carcinoma, NOS of lower lobe, lung<Right>. Right lower lobectomy in 2023. Indication: Restaging Scans. Comparison: PET/CT 01/26/2025. Technique: CT CHEST ABDOMEN PELVIS W CONTRAST. Findings: CHEST: Support devices: The right chest port terminates in the lower SVC. Lungs and Pleura: There has been a right lower lobectomy. The bronchialstumps are within normal limits. The central airways are otherwise clear.There is mild emphysema. There is new, diffuse bilateral groundglassopacity, greater in the lower lungs. There is a new, small area ofclustered nodules in the right upper lobe (image 66). A groundglass nodulein the right upper lobe noted previously has resolved. Trace right pleuralfluid is present. There is a small, nodular focus of low density softtissue or fluid in the right posterior pleura measuring 12 mm (series 301,image 147). Cardiomediastinum: The heart size is normal. There is no pericardialeffusion. There is calcific coronary atherosclerosis. Lymph nodes: Enlarged lymph nodes in the mediastinum and paige are stableto slightly smaller. For example, there is a 14 mm right paratracheallymph node that previously measured 15 mm. There is a 10 mm AP windowlymph node that previously measured 12 mm. ABDOMEN AND PELVIS: Hepatobiliary: Within normal limits Spleen: Within normal limits Pancreas: Within normal limits Adrenal Glands: Bilateral adrenal nodularity is stable. Kidneys, Ureters, Bladder: Within normal limits Gastrointestinal Tract: There are diverticula in the descending colon.Contrast reaches the colon. The small bowel is unremarkable. Pelvic Organs: Coarse calcification is again noted in the [place]. Peritoneum/Retroperitoneum: There is no free fluid in the abdomen orpelvis. There is stable, mild ectasia of the infrarenal abdominal aorta. Lymph Nodes: There are no enlarged lymph nodes in the abdomen or pelvis. MUSCULOSKELETAL: The sclerotic lesion in the right sacrum is stable. There is a stablesclerotic lesion in the T6 vertebral body. There is a stable lucent lesionwith a compression deformity in the T9 vertebral body. IMPRESSION: 1. Stable appearance of the right lower lobectomy. 2. There is new, bilateral airspace disease, suspicious for pneumonia orpneumonitis. An area of clustered nodules in the right upper lobe likelyrepresents small airways infection. 3. There is trace right pleural fluid with a possible low density noduleor focus of fluid in the posterior pleura. Attention on follow-up isrecommended. 4. 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 5. Mediastinal and hilar lymph nodes are stable to slightly smaller.Prior pathology demonstrated noncaseating granulomatous inflammation. ACTIONABLE ITEMS/RECOMMENDATIONS*: None. *An Actionable Finding is a finding that may be unrelated to the originalreason for imaging but potentially actionable, meaning furtherinvestigation may be necessary. The Actionable Findings Vigilance Unit(AFVU) assists medical providers with responding to additional radiologicfindings that are unexpected and potentially actionable. us Ester Iraheta MD IMG CT ORDERABLES Final Resul t * Research Protocol [id number] (03/28/2025 8:11 AM CDT) Only the most recent of2 resultswithin the time period is included. [facility] Research Protocol Specimen Specimen Collected, Ready for Pickup. 03/28/2025 11:00 AM CDT [facility] Blood Port / Unknown 03/28/2025 8: 11 AM CDT 03/28/2025 9:05 AM CDT us Nelli Gamez APRN RESEARCH LAB Z COD ES Final Result [facility] [address] [place] [address] * POC Creatinine (03/28/2025 7:59 AM CDT) [facility] POC Creatinine 0.9 0.6 - 1.3 mg/dL 03/28/2025 8:03 AM CDT [facility] Comment:Medications, especia lly hydroxyurea or supplements, such as ascorbate, can interfere with test results causing a falsely and significantly higher result than expected. If a problem is suspected with a patient's result, a sample should be sent to the laboratory for confirmatory testing. POC eGFR 90 >=60 mL/min/1.7 3 sq. m 03/28/2025 8:03 AM CDT [facility] Comment: The eGFRcr is calculated with the 2020 CKD-EPI creatinine equation using creatinine, patient's age, and sex for adults 18 years of age and older. Other factors, especially muscle mass, may affect accuracy and need to be considered. According to the Kidney Disease: Improving Global Outcomes (KDIGO) CKD Work Group 2012 Clinical Practice Guideline, chronic kidney disease (CKD) is defined as the abnormalities of kidney structure or function, present for more than 3 months, with implications for health. CKD should be classified by cause, GFR category, and albuminuria category. KDIGO guidelines provide the following GFR categories. Stage / Description / GFR mL/min/1.73 m2: G1* / Normal or high / >= 90 G2* / Mildly decreased / 60-89 G3a / Mildly to moderately decreased / 45-59 G3b / Moderately to severely decreased / 30-44 G4 / Severely decreased / 15-29 G5 / Kidney failure / <15 *In the absence of evidence of kidney damage, neither G1 nor G2 fulfill criteria for CKD. Blood 03/28/2025 7:59 AM CDT 03/28/2025 8:03 AM CDT Narrative [facility] - 03/28/2025 8:03 AM CDT Method description: The i-STAT is an analyzer used for in vitro quantification of various analytes in whole blood. The device uses a single disposable cartridge which contains microfabricated sensors, a calibration solution, fluidics system, and a waste chamber. Each test cartridge contains chemically sensitive biosensors on a silicon chip that are configured to perform specific tests. The microfabricated sensors measure analyte concentration by an electrochemical assay. us Ester Iarheta MD POCT ORDERABLES - DEVICE aMbel august Result [facility] [address] [place] [address] * Verify Catheter Tip Placement/Venous Blood Return (02/14/2025 10:00 AM CDT) Jeniffer Singleton APRN - 02/14/2025 10:00 AM CDT Jeniffer Edwards APRN 02/15/2025 4:18 PM Central Vascular Access Device Tip Verification Performed by: Jeniffer Edwards APRN Authorized by: Jeniffer Edwards APRN CVAD Properties Date device placed: Unknown Placed by: Outside [facility] Catheter Type: Implanted venous port with CT rating visible Laterality: Right Tip Verification Properties Diagnostic image available: PET scan Written diagnostic report available: Yes Tip location per report: Superior vena cava Tip in good position and cleared for infusion Jeniffer Edwards APRN IV THERAPY ORDERABLES Final Res ult * CTRC EKG, 12-Lead (02/14/2025) Only the most recent of2 resultswithin the time period is included. Ester Iraheta MD ECG ORDERABLES Final Result [facility] * Pathology Biopsy Interpretation (02/08/2025 3:39 PM CDT) Submitted Clinical History Neuroendocrine carcinoma, NOS of lower lobe, lung <Right> [C7A.090] Mediastinal lymphadenopathy [R59.0] 02/10/2025 7:55 AM CDT [facility] Diagnosis Lymph node(s), right, lower paratracheal, 4r, 4r tbbx x 4 core biopsy: Predominantly blood admixed with lymphoid aggregates showing crush artifact and non-caseating granulomatous inflammation. 02/10/2025 7:55 AM CDT [facility] at 0755 CDT Gross Description A: Lymph node(s), right, lower paratracheal, 4r, 4r tbbx x 4 core biopsy: Multiple dark brown soft friable tissue cores, 1.3 x 0.5 x 0.15 cm in aggregate, entirely submitted in A1. ET 02/10/2025 7:55 AM CDT [facility] Biomarker Block(s) Block for biomarker testing: n/a Normal block: A 02/10/2025 7:55 AM CDT [facility] Disclaimer "Some tests reported here may have been developed and performance characteristics determined by [facility] Pathology and Laboratory Medicine. These tests have not been specifically cleared or approved by the U.S. Food and Drug Administration. If applicable, controls were reviewed and showed appropriate reactivity." 02/10/2025 7:55 AM CDT [facility] Tissue (Lymph Node(s), Right, Lower Paratracheal, 4R) 02/08/2025 3:39 PM CDT 02/09/2025 7:46 AM CDT us Althea Iglesias MD LAB PATHOLOGY ORDERABLES Final Result [facility] [id number] [place] [address], [place] * Cytology Image-Guided FNA Interpretation (02/08/2025 3:07 PM CDT) Only the most recent of3 resultswithin the time period is included. Addendum 1 This addendum is issued to report results of GMS and AFB special stains. Special stains for acid fast and fungal organisms (AFB and GMS, respectively) are negative. Controls are appropriate. 02/13/2025 11:22 AM CDT [facility] Addendum electronically signed by Mireya Rdz MD on 02/13/2025 at 1122 CDT Gross Description Specimens procured: 3 Diff Quik; 3 Pap Stain Slides 10 ml, slightly cloudy pink fluid in RPMI 1 Cell Block Date/Time Placed in Formalin: 02/08/25 5:24 PM Size: 8.4 mm Specimen adequacy was performed by YESSI Alanis(ASCP). 02/13/2025 11:22 AM CDT [facility] Immediate Assessment Adequate cellularity 02/13/2025 11:22 AM CDT [facility] Major Classification [facility]/benign 02/13/2025 11:22 AM CDT [facility] at 1533 CDT Diagnosis Lymph node, left, interlobar, 11L, fine-needle aspiration: No metastatic carcinoma identified Aggregates of epithelioid histiocytes, suggestive of granuloma 02/13/2025 11:[address] [facility] at 1533 CDT Comment GMS and AFB special stains are currently pending and will be reported in an addendum. The cell block preparation was contributory toward making the above diagnosis. 02/13/2025 11:[address] [facility] Retained/Biomark er Testing SR: 6 S, 1 CB 02/13/2025 11:[address] [facility] Informational Points Some tests reported here may have been developed and performance characteristics determined by [facility] Pathology and Laboratory Medicine. These tests have not been specifically cleared or approved by the U.S. Food and Drug Administration. 02/13/2025 11:[address] [facility] Fine Needle Asp (Lymph Node(s), Left, Interlobar, 11L) 02/08/2025 3:07 PM CDT 02/08/2025 4:19 PM CDT us Althea Iglesias MD LAB CYTOLOGY ORDERABLES Edited Result - Final [address] [address], * (ABNORMAL) POC Glucose Screen - Fingerstick (02/08/2025 1:23 PM CDT) Glucose Screen 127(H) 70 - 99 mg/dL 02/08/2025 1:27 PM CDT [facility] POC Sample Type Capillary 02/08/2025 1:27 PM CDT [facility] Blood 02/08/2025 1:23 PM CDT 02/08/2025 1:27 PM CDT Narrative [facility] - 02/08/2025 1:27 PM CDT Capillary blood samples, e.g. obtained by fingerstick, may have inaccurate results in patients with decreased peripheral blood flow. Method description: All results are measured using Electrochemistry test methodology. The glucose in the sample mixes with the reagents on the test strip. The reaction produces an electric current. The amount of current produced is proportional to the glucose concentration in the blood. All POC Glucose screen test results, including critical values, must be interpreted and evaluated in the context of the patients' clinical findings. It is recommended to confirm any questionable test results by core lab methodology. us Althea Iglesias MD POCT ORDERABLES - DEVICE Final Result [facility] Unless otherwise noted, all lab tests performed by: Division of Pathology and Laboratory Medicine [address] [place] [id number] * Urinalysis w/Microscopic if Indicated (02/08/2025 9:17 AM CDT) Only the most recent of2 resultswithin the time period is included. Urine Appearance Clear Clear 02/09/20 9:41 AM CDT [facility] Urine Color Colorless Colorless, Straw, Yellow, Dark Yellow, Straw-Yellow 02/08/2025 9:41 AM CDT [facility] Urine Specific [place] 1.008 1.003 - 1.035 02/08/2025 9:41 AM CDT [facility] Urine pH 6.0 5.0 - 8.0 02/08/2025 9:41 AM CDT [facility] Urine Glucose Negative Negative mg/dL 02/08/2025 9:41 AM CDT [facility] Urine Ketones Negative Negative mg/dL 02/08/2025 9:41 AM CDT [facility] Urine Blood Negative Negative 02/08/2025 9:41 AM CDT [facility] Urine Protein Negative Negative mg/dL 02/08/2025 9:41 AM CDT [facility] Urine Bilirubin Negative Negative 9:41 AM CDT [facility] Urine Urobilinogen Negative Negative 02/08/2025 9:41 AM CDT [facility] Urine Nitrite Negative Negative 02/08/2025 9:41 AM CDT [facility] Urine Leukocyte Esterase Negative Negative 02/08/2025 9:41 AM CDT [facility] Urine Voided urine specimen / Unknown Non-blood Collection / Unknown 02/08/2025 9:17 AM CDT 02/08/2025 9:22 AM CDT Narrative [facility] - 02/08/2025 9:41 AM CDT Some reporting parameters within the Urinalysis test have changed due to the implementation of new instrumentation in the Main [place], allowing greater sensitivity of measurement. Urinalysis results reported by the [facility] using existing instrumentation, as well as Urinalysis testing performed manually or by back-up methodology at the main [place], will remain relatively unchanged. New reporting parameters and units will now be reported for all campuses. No microscopic exam performed; physiochemical findings are negative Ester Iraheta MD URINE ORDERABLES Final Result Performing Organization Address City/[facility]/ZIP Co de Phone Number [facility] Unless otherwise noted, all lab tests performed by: Division of Pathology and Laboratory Medicine [address] [place] [id number] * Glucose, Random (02/08/2025 9:17 AM CDT) Only the most recent of2 resultswithin the time period is included. Glucose Random 123 70 - 199 mg/dL 02/08/2025 10:05 AM CDT [facility] Blood Peripheral blood specimen / Unknown Venipuncture / Unknown 02/08/2025 9:17 AM CDT 02/08/2025 9:22 AM CDT Narrative [facility] - 02/08/2025 10:05 AM CDT Effective 03/25/16, the glucose reference intervals have been updated based on [place] [employer] guidelines (Standards of Medical Care in Diabetes 2016. Diabetes Care 2016; 39: S13-S22). Fasting blood glucose: Normal: 70-99 mg/dL Impaired fasting glucose (increased risk for diabetes or pre-diabetes): 100-125 mg/dL Diabetes mellitus: >/=126 mg/dL Random blood glucose: Normal: 70-199 mg/dL Note: Random glucose >100 mg/dL is associated with increased risk for diabetes Ester Iraheta MD LAB BLOOD ORDERABLES Final Re sult [facility] Unless otherwise noted, all lab tests performed by: Division of Pathology and Laboratory Medicine [address] [place] [id number] * aPTT (02/08/2025 9:17 AM CDT) Only the most recent of2 resultswithin the time period is included. [facility] Activated PTT 25.8 24.8 - 35.6 second(s) 02/08/2025 9:56 AM CDT [facility] Blood Peripheral blood specimen / Unknown Venipuncture / Unknown 02/08/2025 9:17 AM CDT 02/08/2025 9:22 AM CDT us Ester Iraheta MD LAB BLOOD ORDERABLES Final Re sult Performing Organization Address [facility] Co de Phone Number [facility] Unless otherwise noted, all lab tests performed by: Division of Pathology and Laboratory Medicine [address] [place] [id number] * Prothrombin Time with INR (02/08/2025 9:17 AM CDT) Only the most recent of3 resultswithin the time period is included. [facility] Prothrombin Time 13.2 12.2 - 14.4 second(s) 02/08/2025 9:56 AM CDT [facility] International Normalization Ratio 1.02 0.91 - 1.10 02/08/2025 9:56 AM CDT [facility] Blood Peripheral blood specimen / Unknown Venipuncture / Unknown 02/08/2025 9:17 AM CDT 02/08/2025 9:22 AM CDT us Ester Iraheta MD LAB BLOOD ORDERABLES Final Re sult [facility] Unless otherwise noted, all lab tests performed by: Division of Pathology and Laboratory Medicine [address] [place] [id number] * Blood Urea Nitrogen (02/08/2025 9:17 AM CDT) Only the most recent of2 resultswithin the time period is included. [facility] BUN 11 6 - 23 mg/dL 02/08/2025 10:05 AM CDT [facility] Blood Peripheral blood specimen / Unknown Venipuncture / Unknown 02/08/2025 9:17 AM CDT 02/08/2025 9:22 AM CDT us Ester Iraheta MD LAB BLOOD ORDERABLES Final Re sult Performing Organization Address City/[facility] Co de Phone Number [facility] Unless otherwise noted, all lab tests performed by: Division of Pathology and Laboratory Medicine [address] [place] [id number] * Alanine Aminotransferase (02/08/2025 9:17 AM CDT) Only the most recent of2 resultswithin the time period is included. ALT 26 <=41 U/L 02/08/2025 10:05 AM CDT [facility] Blood Peripheral blood specimen / Unknown Venipuncture / Unknown 02/08/2025 9:17 AM CDT 02/08/2025 9:22 AM CDT us Ester Iraheta MD LAB BLOOD ORDERABLES Final Re sult Performing Organization Address [facility] de Phone Number [facility] Unless otherwise noted, all lab tests performed by: Division of Pathology and Laboratory Medicine [address] [place] [phone] * Aspartate Aminotransferase (02/08/2025 9:17 AM CDT) Only the most recent of2 resultswithin the time period is included. AST 25 <=40 U/L 02/08/2025 10:05 AM CDT [facility] Blood Peripheral blood specimen / Unknown Venipuncture / Unknown 02/08/2025 9:17 AM CDT 02/08/2025 9:22 AM CDT us Ester Iraheta MD LAB BLOOD ORDERABLES Final Re sult Performing Organization Address City/[facility] Co de Phone Number [facility] Unless otherwise noted, all lab tests performed by: Division of Pathology and Laboratory Medicine [address] [place] [id number] * Sodium Level (02/08/2025 9:17 AM CDT) Only the most recent of2 resultswithin the time period is included. Sodium Level 138 136 - 145 mmol/L 02/08/2025 10:05 AM CDT [facility] Blood Peripheral blood specimen / Unknown Venipuncture / Unknown 02/08/2025 9:17 AM CDT 02/08/2025 9:22 AM CDT Narrative [facility] - 02/08/2025 10:05 AM CDT Reference range established based on adult population us Ester Iraheta MD LAB BLOOD ORDERABLES Final Re sult Performing Organization Address [facility] de Phone Number [facility] Unless otherwise noted, all lab tests performed by: Division of Pathology and Laboratory Medicine [address] [place] [phone] * Total Protein (02/08/2025 9:17 AM CDT) Only the most recent of2 resultswithin the time period is included. Pathologist [facility] [place] Tot Protein 7.4 6.4 - 8.3 gm/dL 02/08/2025 10:05 AM CDT [facility] Blood Peripheral blood specimen / Unknown Venipuncture / Unknown 02/08/2025 9:17 AM CDT 02/08/2025 9:22 AM CDT Narrative [facility] - 02/08/2025 10:05 AM CDT Reference range established based on adult population us Ester Iraheta MD LAB BLOOD ORDERABLES Final Re sult Performing Organization Address City/[facility]/ZIP Co de Phone Number [facility] Unless otherwise noted, all lab tests performed by: Division of Pathology and Laboratory Medicine [address] [place] [id number] * (ABNORMAL) Potassium Level (02/08/2025 9:17 AM CDT) Only the most recent of2 resultswithin the time period is included. Potassium Level 5.3(H) 3.4 - 4.5 mmol/L 02/08/2025 10:05 AM CDT [facility] Blood Peripheral blood specimen / Unknown Venipuncture / Unknown 02/08/2025 9:17 AM CDT 02/08/2025 9:22 AM CDT Narrative [facility] - 02/08/2025 10:05 AM CDT Reference range established based on adult population Ester Iraheta MD LAB BLOOD ORDERABLES Final Re sult Performing Organization Address City/[facility] Co de Phone Number [facility] Unless otherwise noted, all lab tests performed by: Division of Pathology and Laboratory Medicine [address] [place] [phone] * Alkaline phosphatase (02/08/2025 9:17 AM CDT) Only the most recent of2 resultswithin the time period is included. Alkaline Phosphatase 73 40 - 129 U/L 02/08/2025 10:05 AM CDT [facility] Blood Peripheral blood specimen / Unknown Venipuncture / Unknown 02/08/2025 9:17 AM CDT 02/08/2025 9:22 AM CDT Ester Iraheta MD LAB BLOOD ORDERABLES Final Re sult Performing Organization Address City/[facility] Co de Phone Number [facility] Unless otherwise noted, all lab tests performed by: Division of Pathology and Laboratory Medicine [address] [place] [id number] * Creatinine (02/08/2025 9:17 AM CDT) Only the most recent of2 resultswithin the time period is included. Creatinine 0.85 0.67 - 1.17 mg/dL 02/08/2025 10:05 AM CDT [facility] eGFR 92 >=60 mL/min/1.7 3 sq. m 02/08/2025 10:05 AM CDT [facility] Comment: The eGFRcr is calculated with the 2020 CKD-EPI creatinine equation using creatinine, patient's age, and sex for adults 18 years of age and older. Other factors, especially muscle mass, may affect accuracy and need to be considered. According to the Kidney Disease: Improving Global Outcomes (KDIGO) CKD Work Group 2012 Clinical Practice Guideline, chronic kidney disease (CKD) is defined as the abnormalities of kidney structure or function, present for more than 3 months, with implications for health. CKD should be classified by cause, GFR category, and albuminuria category. KDIGO guidelines provide the following GFR categories. Stage / Description / GFR mL/min/1.73 m2: G1* / Normal or high / >= 90 G2* / Mildly decreased / 60-89 G3a / Mildly to moderately decreased / 45-59 G3b / Moderately to severely decreased / 30-44 G4 / Severely decreased / 15-29 G5 / Kidney failure / <15 *In the absence of evidence of kidney damage, neither G1 nor G2 fulfill criteria for CKD. Blood Peripheral blood specimen / Unknown Venipuncture / Unknown 02/08/2025 9:17 AM CDT 02/08/2025 9:22 AM CDT Ester Iraheta MD LAB BLOOD ORDERABLES Final Re sult [facility] Unless otherwise noted, all lab tests performed by: Division of Pathology and Laboratory Medicine [address] [place] [address] [phone] * Chloride Level (02/08/2025 9:17 AM CDT) Only the most recent of2 resultswithin the time period is included. Chloride 102 98 - 107 mmol/L 02/08/2025 10:05 AM CDT [facility] Blood Peripheral blood specimen / Unknown Venipuncture / Unknown 02/08/2025 9:17 AM CDT 02/08/2025 9:22 AM CDT Narrative [facility] - 02/08/2025 10:05 AM CDT Reference range established based on adult population Ester Iraheta MD LAB BLOOD ORDERABLES Final Re sult Performing Organization Address City/[facility]/ZIP Co de Phone Number [facility] Unless otherwise noted, all lab tests performed by: Division of Pathology and Laboratory Medicine [address] [place] [phone] * Calcium Level Total (02/08/2025 9:17 AM CDT) Only the most recent of2 resultswithin the time period is included. Calcium Level Total 10.2 8.2 - 10.2 mg/dL 02/08/2025 10:05 AM CDT [facility] Blood Peripheral blood specimen / Unknown Venipuncture / Unknown 02/08/2025 9:17 AM CDT 02/08/2025 9:22 AM CDT us Ester Iraheta MD LAB BLOOD ORDERABLES Final Re sult Performing Organization Address [facility] Co de Phone Number [facility] Unless otherwise noted, all lab tests performed by: Division of Pathology and Laboratory Medicine [address] [place] [phone] * Albumin Level (02/08/2025 9:17 AM CDT) Only the most recent of2 resultswithin the time period is included. Albumin Level 4.7 3.5 - 5.2 gm/dL 02/08/2025 10:05 AM CDT [facility] Blood Peripheral blood specimen / Unknown Venipuncture / Unknown 02/08/2025 9:17 AM CDT 02/08/2025 9:22 AM CDT us Ester Iraheta MD LAB BLOOD ORDERABLES Final Re sult Performing Organization Address City/[facility] Co de Phone Number [facility] Unless otherwise noted, all lab tests performed by: Division of Pathology and Laboratory Medicine [address] [place] [id number] * OCT, Retina - OU - Both Eyes (02/01/2025 10:43 AM CDT) Narrative Angela Morales MD - 02/07/2025 1:02 PM CDT Right Eye This is the baseline exam. Findings include normal observations. Left Eye This is the baseline exam. Findings include normal observations. us Angeal Morales MD OPHTHALMOLOGY IMG ORDERABLES Fi nal Result * Fundus Photos - OU - Both Eyes (02/01/2025 10:43 AM CDT) Narrative Angela Morales MD - 02/07/2025 1:02 PM CDT Right Eye Basline Exam. Left Eye Basline Exam. Angela Morales MD OPHTHALMOLOGY IMG ORDERABLES Fi nal Result * Echocardiogram 2D Complete (02/01/2025 8:52 AM CDT) EF 61 ISCV 02/01/2025 8:05 AM CDT Narrative [facility] - 02/01/2025 9:35 AM CDT Echocardiographic Report Interpretation Summary A complete two-dimensional transthoracic echocardiogram was performed (2D, M- mode, Spectral and color Doppler). A complete two-dimensional transthoracic echocardiogram was performed (2D, M-mode, Doppler and color flow Doppler). The study was technically adequate and no previous studies are available for comparison. LV ejection fraction calculated using the bi-plane method of disks is 61 %. Normal left ventricular size and systolic function. The left ventricle is normal in size. There is no thrombus. There is normal left ventricular wall thickness. LV ejection fraction calculated using the bi-plane method of disks is 61 %. Left ventricular systolic function is normal. No regional wall motion abnormalities noted. The left ventricular wall motion is normal. Left Ventricle: Normal left ventricular size and systolic function. The left ventricle is normal in size. There is no thrombus. There is normal left ventricular wall thickness. LV ejection fraction calculated using the bi-plane method of disks is 61 %. Left ventricular systolic function is normal. No regional wall motion abnormalities noted. The left ventricular wall motion is normal. I WMSI = 1.00 % Normal = 100 Segments Size X - Cannot 2 - 1-2 small Interpret 1 - Normal Hypokinetic 3 - Akinetic 4 - Dyskinetic3- 5 moderate 5 - Aneurysmal 6-14 large 15-16 diffuse 3D imaginD volumes were not performed in this study. Cardiac Mechanics/Speckle Tracking Imaging: Normal global longitudinal peak systolic value. Diastology: Normal diastolic function. Right Ventricle: The right ventricle is normal in size and function. There is normal right ventricular wall thickness. Normal RV systolic function using TAPSE criteria. Atria: Atria are normal in size. Right atrial size is normal. The interatrial septum is intact with no evidence for an atrial septal defect. Mitral Valve: The mitral valve is grossly normal. The mitral valve is normal. There is no mitral valve stenosis. There is trace mitral regurgitation. Tricuspid Valve: The tricuspid valve is not well visualized, but is grossly normal. The tricuspid valve is normal. There is no tricuspid valve stenosis. Right ventricular systolic pressure is normal. There is trace tricuspid regurgitation. Aortic Valve: The aortic valve is trileaflet. The aortic valve opens well. No aortic regurgitation is present. Pulmonic Valve: The pulmonic valve is not well visualized. The pulmonic valve is not well seen, but is grossly normal. There is no pulmonic valvular stenosis. Trace pulmonic valvular regurgitation. Great Vessels: The aortic root is normal size. The inferior vena cava demonstrates normal size and normal respiratory variation. Pericardium/Pleural: There is no pericardial effusion. There is no pleural effusion. MMode/2D Measurements IVSd: 1.1 cm LVIDd: 4.3 cm LVIDs: 3.4 cm LVPWd: 0.89 cm FS: 22.2 % Ao root diam: 3.7 cm Ao root area: 11.0 cm2 LA dimension: 3.5 cm LVOT diam: 2.5 cm EDV(MOD-A4C): 143.1 ml ESV(MOD-A4C): 58.0 ml LVOT area: 4.8 cm2 EF(MOD-A4C): 59.5 % EDV(MOD-A2C): 118.3 ml ESV(MOD-A2C): 44.0 ml EDV(MOD-bp): 131.5 ml EF(MOD-A2C): 62.8 % ESV(MOD-bp): 51.6 ml EF(MOD-bp): 60.7 % LAV(MOD-A2C): 43.8 ml LAV(MOD-A4C): 36.1 ml EDV (MOD-bp) Index: 67.8 ml/m2 LAV(MOD-bp): 41.6 ml LAV(MOD-bp) Indexed: 21.5 ml/m2 ESV (MOD-bp) Index: 26.6 ml/m2 RWT: 0.41 cm TAPSE (>1.6): 2.6 cm Doppler Measurements MV E max norm: 72.4 cm/sec MV V2 max: 95.4 cm/sec MV A max norm: 98.4 cm/sec MV max P.6 mmHg MV E/A: 0.74 MV V2 mean: 49.1 cm/sec MV mean P.1 mmHg MV V2 VTI: 24.8 cm MVA(VTI): 3.5 cm2 Ao V2 max: 115.5 cm/sec LV V1 max P.1 mmHg Ao max P.3 mmHg LV V1 mean P.4 mmHg Ao V2 mean: 72.2 cm/sec LV V1 max: 88.1 cm/sec Ao mean P.4 mmHg LV V1 mean: 56.6 cm/sec Ao V2 VTI: 21.1 cm LV V1 VTI: 17.9 cm MARIUSZ(I,D): 4.1 cm2 MARIUSZ(V,D): 3.7 cm2 SV(LVOT): 85.9 ml PA V2 max: 104.8 cm/sec PA max P.4 mmHg PA V2 mean: 63.5 cm/sec PA mean P.8 mmHg PA V2 VTI: 17.6 cm MARIUSZ Index (I,D): 2.1 MARIUSZ Index (V,D): 1.9 Dimensionless Index: 0.76 Procedure Note Jeanna George MD - 02/01/2025 Echocardiographic Report Interpretation Summary A complete two-dimensional transthoracic echocardiogram was performed (2D,M- mode, Spectral and color Doppler). A complete two-dimensionaltransthoracic echocardiogram was performed (2D, M-mode, Doppler and colorflow Doppler). The study was technically adequate and no previous studiesare available for comparison. LV ejection fraction calculated using thebi-plane method of disks is 61 %. Normal left ventricular size and systolic function. The left ventricle isnormal in size. There is no thrombus. There is normal left ventricularwall thickness. LV ejection fraction calculated using the bi-plane methodof disks is 61 %. Left ventricular systolic function is normal. Noregional wall motion abnormalities noted. The left ventricular wall motionis normal. Left Ventricle: Normal left ventricular size and systolic function. The left ventricle isnormal in size. There is no thrombus. There is normal left ventricularwall thickness. LV ejection fraction calculated using the bi-plane methodof disks is 61 %. Left ventricular systolic function is normal. Noregional wall motion abnormalities noted. The left ventricular wall motionis normal. I WMSI = 1.00 % Normal = 100 Segments Size X - Cannot 2 - 1-2small Interpret 1 - Normal Hypokinetic 3 - Akinetic 4 - Dyskinetic3-5moderate 5 - Aneurysmal6-14 large 15-16 diffuse 3D imaginD volumes were not performed in this study. Cardiac Mechanics/Speckle Tracking Imaging: Normal global longitudinal peak systolic value. Diastology: Normal diastolic function. Right Ventricle: The right ventricle is normal in size and function. There is normal rightventricular wall thickness. Normal RV systolic function using TAPSEcriteria. Atria: Atria are normal in size. Right atrial size is normal. The interatrialseptum is intact with no evidence for an atrial septal defect. Mitral Valve: The mitral valve is grossly normal. The mitral valve is normal. There isno mitral valve stenosis. There is trace mitral regurgitation. Tricuspid Valve: The tricuspid valve is not well visualized, but is grossly normal. Thetricuspid valve is normal. There is no tricuspid valve stenosis. Rightventricular systolic pressure is normal. There is trace tricuspidregurgitation. Aortic Valve: The aortic valve is trileaflet. The aortic valve opens well. No aorticregurgitation is present. Pulmonic Valve: The pulmonic valve is not well visualized. The pulmonic valve is not wellseen, but is grossly normal. There is no pulmonic valvular stenosis. Tracepulmonic valvular regurgitation. Great Vessels: The aortic root is normal size. The inferior vena cava demonstrates normalsize and normal respiratory variation. Pericardium/Pleural: There is no pericardial effusion. There is no pleural effusion. MMode/2D Measurements IVSd: 1.1 cmLVIDd: 4.3 cm LVIDs: 3.4 cm LVPWd: 0.89 cm FS: 22.2 %Ao root diam: 3.7 cm Ao root area: 11.0 cm2 LA dimension: 3.5 cm LVOT diam: 2.5 cmEDV(MOD-A4C): 143.1 ml ESV(MOD-A4C): 58.0 ml LVOT area: 4.8 cm2EF(MOD-A4C): 59.5 % EDV(MOD-A2C): 118.3 ml ESV(MOD-A2C): 44.0 mlEDV(MOD-bp): 131.5 ml EF(MOD-A2C): 62.8 %ESV(MOD-bp): 51.6 ml EF(MOD-bp): 60.7 % LAV(MOD-A2C): 43.8 ml LAV(MOD-A4C): 36.1 mlEDV (MOD-bp) Index: 67.8 ml/m2 LAV(MOD-bp): 41.6 ml LAV(MOD-bp) Indexed: 21.5 ml/m2 ESV (MOD-bp) Index: 26.6 ml/m2RWT: 0.41 cm TAPSE (>1.6): 2.6 cm Doppler Measurements MV E max norm: 72.4 cm/secMV V2 max: 95.4 cm/sec MV A max norm: 98.4 cm/secMV max P.6 mmHg MV E/A: 0.74MV V2 mean: 49.1 cm/sec MV mean P.1 mmHg MV V2 VTI: 24.8 cm MVA(VTI): 3.5 cm2 Ao V2 max: 115.5 cm/secLV V1 max P.1 mmHg Ao max P.3 mmHgLV V1 mean P.4 mmHg Ao V2 mean: 72.2 cm/secLV V1 max: 88.1 cm/sec Ao mean P.4 mmHgLV V1 mean: 56.6 cm/sec Ao V2 VTI: 21.1 cmLV V1 VTI: 17.9 cm MARIUSZ(I,D): 4.1 cm2 MARIUSZ(V,D): 3.7 cm2 SV(LVOT): 85.9 mlPA V2 max: 104.8 cm/sec PA max P.4 mmHg PA V2 mean: 63.5 cm/sec PA mean P.8 mmHg PA V2 VTI: 17.6 cm MARIUSZ Index (I,D): 2.1AVA Index (V,D): 1.9 Dimensionless Index: 0.76 us Ester Iraheta MD CV ECHO ORDERABLES Final Resu lt ISCV * PETCT F18 FDG (Fluorodeoxyglucose) without contrast (01/26/2025 4:28 PM CDT) Anatomical Region Laterality Modality Whole Body Positron Emissio n Tomography (PET) 01/29/2025 10:0 1 AM CDT Impressions 01/29/2025 12:27 PM CDT Surgical changes of right lower lobectomy. Increased metabolic activity bilaterally in the hilar regions, and bilaterally in enlarged mediastinal nodes concerning for metastatic involvement. Less likely, may be reactive nodes. Increasing sclerosis and metabolic activity in the right-sided the sacrum compatible with metastatic involvement. Nonspecific right upper lobe pulmonary nodule can be followed to exclude a neoplastic process 4 mm in diameter. ACTIONABLE ITEMS/RECOMMENDATIONS*: None. *An Actionable Finding is a finding that may be unrelated to the original reason for imaging but potentially actionable, meaning further investigation may be necessary. The Actionable Findings Vigilance Unit (AFVU) assists medical providers with responding to additional radiologic findings that are unexpected and potentially actionable. 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 Right lower lobectomy 01/19/2024. Chemotherapy. Maintenance pembrolizumab . 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 Comparison: 11/10/2024. Technique: F-18 fluorodeoxyglucose 7.7 mCi was administered intravenously via right antecubital fossa. To allow for distribution and uptake of radiotracer, the patient was asked to rest quietly for approximately 60-90 minutes. PET/CT imaging was performed from the vertex to thighs. CT scanning was done for attenuation correction, image registration, and diagnosis with scan parameters optimized to minimize radiation exposure to the patient. SUV measurements are reported as maximum SUV based on body weight unless otherwise specified. Findings: Head and Neck: Soft tissue in the right maxillary sinus likely retention cyst, similar relative to the previous study. No sign of brain metastasis at PET/CT scanning. No enlarged nodes in the head and neck region showing increased FDG activity to suggest skylar metastatic disease. The thyroid gland appears unremarkable. Chest: Surgical changes of right lower lobectomy. Other central airways are patent. Small right pleural effusion. No left pleural effusion. No sign of a pneumothorax. Calcified nodule in the left upper lobe unchanged in the interval in keeping with sequela of granulomatous disease image 110. Stable bilateral band opacities likely areas of scarring. There is a 4 mm right upper lobe ground lass nodule, similar relative to 10/31/2024 but new relative to 02/18/2024. The lesion may be post inflammatory infectious scarring though follow-up to exclude a neoplastic lesion can be performed, either primary or secondary. Continued increased metabolic activity and bilateral mediastinal, and hilar nodes. Persisting enlarged nodes bilaterally in the mediastinum, similar relative to 11/10/2024. Right paratracheal nodes 1.3 cm in diameter. Left paratracheal nodes unchanged in size, 1.3 cm in diameter. Enlarged nodes in the aorticopulmonary window 1.2 cm in diameter. Increased soft tissue density in the right hilar region appear similar relative to the previous study. No definite enlarged left hilar nodes. No enlarged axillary nodes, or internal mammary nodes. Cardiac chambers are not enlarged. No sign of a pericardial effusion. Mild coronary artery calcification. No sign of a pericardial effusion. Abdomen and Pelvis: No focal liver lesions. The spleen is not enlarged. No focal pancreatic lesions. Nodularity/thickening of the adrenal glands similar relative to the previous study likely hyperplasia/adenoma. Renal activity is physiologic. Atherosclerotic disease of aorta with ectasia of the infrarenal aorta 2.7 cm in diameter. Diverticula of the colon. No sign of diverticulitis. Musculoskeletal: Degenerative changes of the spine. Increased area of sclerosis with increased metabolic activity over the right-sided the sacrum, max SUV value 8.8, compatible with metastatic involvement image 273. The right port terminates over the superior vena cava. 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 Rightlower lobectomy 01/19/2024. Chemotherapy. Maintenance pembrolizumab . 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 Comparison: 11/10/2024. Technique: F-18 fluorodeoxyglucose 7.7 mCi was administered intravenously via rightantecubital fossa. To allow for distribution and uptake of radiotracer,the patient was asked to rest quietly for approximately 60-90 minutes.PET/CT imaging was performed from the vertex to thighs. CT scanning wasdone for attenuation correction, image registration, and diagnosis withscan parameters optimized to minimize radiation exposure to the patient.SUV measurements are reported as maximum SUV based on body weight unlessotherwise specified. Findings: Head and Neck: Soft tissue in the right maxillary sinus likely retention cyst, similarrelative to the previous study. No sign of brain metastasis at PET/CT scanning. No enlarged nodes in thehead and neck region showing increased FDG activity to suggest nodalmetastatic disease. The thyroid gland appears unremarkable. Chest: Surgical changes of right lower lobectomy. Other central airways arepatent. Small right pleural effusion. No left pleural effusion. No sign of apneumothorax. Calcified nodule in the left upper lobe unchanged in the interval inkeeping with sequela of granulomatous disease image 110. Stable bilateral band opacities likely areas of scarring. There is a 4 mm right upper lobe ground lass nodule, similar relative to10/31/2024 but new relative to 02/18/2024. The lesion may be postinflammatory infectious scarring though follow-up to exclude a neoplasticlesion can be performed, either primary or secondary. Continued increased metabolic activity and bilateral mediastinal, andhilar nodes. Persisting enlarged nodes bilaterally in the mediastinum,similar relative to 11/10/2024. Right paratracheal nodes 1.3 cm indiameter. Left paratracheal nodes unchanged in size, 1.3 cm in diameter.Enlarged nodes in the aorticopulmonary window 1.2 cm in diameter.Increased soft tissue density in the right hilar region appear similarrelative to the previous study. No definite enlarged left hilar nodes. Noenlarged axillary nodes, or internal mammary nodes. Cardiac chambers are not enlarged. No sign of a pericardial effusion. Mildcoronary artery calcification. No sign of a pericardial effusion. Abdomen and Pelvis: No focal liver lesions. The spleen is not enlarged. No focal pancreaticlesions. Nodularity/thickening of the adrenal glands similar relative tothe previous study likely hyperplasia/adenoma. Renal activity isphysiologic. Atherosclerotic disease of aorta with ectasia of the infrarenal aorta 2.7cm in diameter. Diverticula of the colon. No sign of diverticulitis. Musculoskeletal: Degenerative changes of the spine. Increased area of sclerosis withincreased metabolic activity over the right-sided the sacrum, max SUVvalue 8.8, compatible with metastatic involvement image 273. The right port terminates over the superior vena cava. IMPRESSION: Surgical changes of right lower lobectomy. Increased metabolic activity bilaterally in the hilar regions, andbilaterally in enlarged mediastinal nodes concerning for metastaticinvolvement. Less likely, may be reactive nodes. Increasing sclerosis and metabolic activity in the right-sided the sacrumcompatible with metastatic involvement. Nonspecific right upper lobe pulmonary nodule can be followed to exclude aneoplastic process 4 mm in diameter. ACTIONABLE ITEMS/RECOMMENDATIONS*: None. *An Actionable Finding is a finding that may be unrelated to the originalreason for imaging but potentially actionable, meaning furtherinvestigation may be necessary. The Actionable Findings Vigilance Unit(AFVU) assists medical providers with responding to additional radiologicfindings that are unexpected and potentially actionable. Nelli Edie Gamez APRN IMG PETCT ORDERABL ES Final Result * HIV-1/-2 Ag and Ab Screen, P (01/26/2025 12:05 PM CDT) Pathologist [facility] [place] HIV-1/-2 Ag and Ab Screen, P Negative Negative 01/29/2025 10:48 AM CDT [facility] Comment: Negative result does not rule out HIV infection. If exposure to HIV infection occurred <14 days ago, contact the laboratory to request addition of HIV-1/HIV-2 RNA detection, Plasma ([id number]). Test Performed by: [facility] [place] [address] [place] [address] Home Care Giver: Sean Pierson Ph.D.; CLIA# [id number] Blood Peripheral blood specimen / Unknown Venipuncture / Unknown 01/26/2025 12:05 PM CDT 01/26/2025 12:07 PM CDT Ester Iraheta MD LAB BLOOD ORDERABLES Final Re sult [facility] * Hepatitis C Virus Antibody (01/26/2025 12:05 PM CDT) Pathologist [facility] [place] HCVAb. Non Reactive Non Reactive 01/26/2025 1:31 PM CDT [facility] Blood Peripheral blood specimen / Unknown Venipuncture / Unknown 01/26/2025 12:05 PM CDT 01/26/2025 12:07 PM CDT Narrative [facility] - 01/26/2025 1:31 PM CDT Antibody detection in the immunocompromised and immunosuppressed population may be delayed or absent entirely. Therefore serial testing, correlation with other clinical findings, and supplemental testing (if available) should be taken into consideration when interpreting the results. Ester Iraheta MD LAB BLOOD ORDERABLES Final Re sult Performing Organization Address City/[facility]/ZIP Co de Phone Number [facility] Unless otherwise noted, all lab tests performed by: Division of Pathology and Laboratory Medicine [address] [place] [id number] * Hepatitis B Total Ig Core Ab (SCREENING) (anti-HBc total Ig; HBcAb total Ig) (01/26/2025 12:05 PM CDT) [facility] HBcAb. Non Reactive Non Reactive 01/26/2025 1:31 PM CDT [facility] Blood Peripheral blood specimen / Unknown Venipuncture / Unknown 01/26/2025 12:05 PM CDT 01/26/2025 12:07 PM CDT Result [facility] Ester Iraheta MD LAB BLOOD ORDERABLES Final Re sult [facility] Unless otherwise noted, all lab tests performed by: Division of Pathology and Laboratory Medicine [address] [place] [phone] * HIV 1 RNA Quantification (01/26/2025 12:05 PM CDT) [facility] HIV 1 RNA PCR-[place] Undetected Undetected copies/mL 01/29/2025 2:56 PM CDT [facility] Comment: Result in log copies/mL is Undetected. ADDITIONAL INFORMATION The quantification range of this assay is 20 to 10,000,000 copies/mL (1.30 log to 7.00 log copies/mL). Testing was performed using the dontrell HIV-1 test ([employer] Test Performed by: [place] [address] Home Care Giver: Sean Pierson Ph.D.; CLIA# [id number] Blood Peripheral blood specimen / Unknown Venipuncture / Unknown 01/26/2025 12:05 PM CDT 01/26/2025 12:07 PM CDT Ester Iraheta MD LAB BLOOD ORDERABLES Final Re sult [facility] * Hepatitis Surface B Ag (01/26/2025 12:05 PM CDT) [facility] HBsAg. Non Reactive Non Reactive 01/26/2025 1:31 PM CDT [facility] Blood Peripheral blood specimen / Unknown Venipuncture / Unknown 01/26/2025 12:05 PM CDT 01/26/2025 12:07 PM CDT Ester Iraheta MD LAB BLOOD ORDERABLES Final Re sult [facility] Unless otherwise noted, all lab tests performed by: Division of Pathology and Laboratory Medicine [address] [place] [id number] * IR US EXTREMITY LIMITED (01/25/2025 8:19 AM CDT) Anatomical Region Laterality Modality Extremity Ultrasound Narrative 01/25/2025 12:00 PM CDT Date of Procedure: 01/25/25 Attending Physician: Mike Lange MD Pier Worker: Soo Muñoz PA-C Pre Procedure Diagnosis: Neuroendocrine carcinoma, NOS of lower lobe, lung <Right> Post Procedure Diagnosis: Unchanged Indication: left axillary lesion Title of Procedure: Limited ultrasound image of left axilla Operative Findings: limited ultrasound image of left axilla. There is no definite mass for US guided biopsy Consent: The procedure, risks, indications and alternatives were explained. All questions were answered and informed consent was obtained. I have reviewed the history and physical dictated by the NELDA / fellow. Sedation/Anesthesia: None Procedure in Detail: A time out was performed prior to the start of the procedure and the correct patient, procedure, presence of consent, site, and side were confirmed with all members of the team. Limited ultrasound image of left axilla. No significant lesion appreciated for biopsy today. Additional Comments: None Estimated Blood Loss: Minimal Specimens Removed: No Immediate Complications: None Disposition: PACU Plan: No follow-up with Interventional Radiology required. Recommend review of the PET CT that is scheduled on 01/26 Consider a different site for biopsy if needed This draft note was prepared by the NELDA involved in the case; it was then reviewed and finalized by the attending physician. I certify my physical presence in the procedure/control room at the time of the procedure. I personally reviewed the image(s) and the NELDA's interpretation and agree with the written report. us Ester Iraheta MD IMG IR ORDERABLES Final Resul t * EKG, 12-Lead (Scheduled) (01/25/2025) Only the most recent of3 resultswithin the time period is included. us Ester Iraheta MD ECG ORDERABLES Final Result [facility] * MRI Brain with and without Contrast (01/18/2025 3:38 PM CDT) Anatomical Region Laterality Modality Head Magnetic Resonan ce 01/19/2025 2:37 PM CDT Impressions 01/19/2025 2:50 PM CDT No evidence of intracranial metastasis. ACTIONABLE ITEMS/RECOMMENDATIONS*: None. *An Actionable Finding is a finding that may be unrelated to the original reason for imaging but potentially actionable, meaning further investigation may be necessary. The Actionable Findings Vigilance Unit (AFVU) assists medical providers with responding to additional radiologic findings that are unexpected and potentially actionable. Narrative 01/19/2025 2:50 PM CDT FULL RESULT: Examination: MRI BRAIN W WO CONTRAST on 01/18/2025 3:38 PM. CLINICAL HISTORY: Neuroendocrine carcinoma, NOS of lower lobe, lung <Right> INDICATION: Cancer complication or comorbidity assessment COMPARISON: None. TECHNIQUE: MRI brain without and with IV contrast was performed. FINDINGS: There are no enhancing brain parenchymal lesions. There is no intracranial leptomeningeal enhancement. There are no dural based enhancing masses. There is no hydrocephalus. There are no subdural collections. There is no acute infarct. There are scattered T2/FLAIR hyperintensities within the cerebral white matter bilaterally which are likely hospital sales representative of chronic microangiopathic changes. There are no suspicious enhancing calvarial or skull base lesions. There is note of prominence of the extra-axial CSF fluid spaces at the vertex of the skull which may be secondary to benign enlargement of the subarachnoid spaces. The paranasal sinuses and mastoid air cells are well-aerated. Procedure Note Jaswinder Howard MD - 01/19/2025 FULL RESULT: Examination: MRI BRAIN W WO CONTRAST on 01/18/2025 3:38 PM. CLINICAL HISTORY: Neuroendocrine carcinoma, NOS of lower lobe, lung<Right> INDICATION: Cancer complication or comorbidity assessment COMPARISON: None. TECHNIQUE: MRI brain without and with IV contrast was performed. FINDINGS: There are no enhancing brain parenchymal lesions. There is no intracranialleptomeningeal enhancement. There are no dural based enhancing masses.There is no hydrocephalus. There are no subdural collections. There is noacute infarct. There are scattered T2/FLAIR hyperintensities within thecerebral white matter bilaterally which are likely hospital sales representative ofchronic microangiopathic changes. There are no suspicious enhancing calvarial or skull base lesions. There is note of prominence of the extra-axial CSF fluid spaces at thevertex of the skull which may be secondary to benign enlargement of thesubarachnoid spaces. The paranasal sinuses and mastoid air cells are well-aerated. IMPRESSION: No evidence of intracranial metastasis. ACTIONABLE ITEMS/RECOMMENDATIONS*: None. *An Actionable Finding is a finding that may be unrelated to the originalreason for imaging but potentially actionable, meaning furtherinvestigation may be necessary. The Actionable Findings Vigilance Unit(AFVU) assists medical providers with responding to additional radiologicfindings that are unexpected and potentially actionable. Nelli Gamez APRN IMG MRI ORDERABLES Final Result * TSH (01/15/2025 1:39 PM CDT) Thyroid Stimulating Hormone 2.19 0.27 - 4.20 mcIU/mL 01/15/2025 3:21 PM CDT [facility] Blood Peripheral blood specimen / Unknown Venipuncture / Unknown 01/15/2025 1:39 PM CDT 01/15/2025 2:04 PM CDT Nelli Gamez APRN LAB BLOOD ORDERABL ES Final Result Performing Organization Address City/[facility]/ZIP Co de Phone Number [facility] Unless otherwise noted, all lab tests performed by: Division of Pathology and Laboratory Medicine [address] [place] [id number] * Free T4 (01/15/2025 1:39 PM CDT) T4 (Thyroxine) Free 1.28 0.92 - 1.68 ng/dL 01/15/2025 3:21 PM CDT [facility] Blood Peripheral blood specimen / Unknown Venipuncture / Unknown 01/15/2025 1:39 PM CDT 01/15/2025 2:04 PM CDT Nelli Gamez APRN LAB BLOOD ORDERABL ES Final Result [facility] Unless otherwise noted, all lab tests performed by: Division of Pathology and Laboratory Medicine [facility] [place] [address] * OSI PET CT Skull to Mid Thigh (11/10/2024 4:39 PM CDT) Only the most recent of2 resultswithin the time period is included. Narrative Systemgenerated, Documentation - 01/05/2025 4:39 PM CDT Study acquired at another institution. For comparison only. No [facility] originated interpretation requested or available. us Ester Iraheta MD IMG OUTSIDE IMAGE ORDERABLES Final Result * Pathology Outside Interpretation (08/11/2024) Materials Received Accession#, Stained, Block, Unstained Collected Received A. [id number], 30 SS, 0 BLOCKS, 0 USS 08/11/2024 01/05/2025 01/09/2025 4:10 PM CDT [facility] Diagnosis Received 30 slides ([id number],) designated as follows: A. Lymph node, subcarinal, EBUS guided fine-needle aspiration: No metastatic carcinoma identified Non-necrotizing granulomatous inflammation B. Lymph node, station 10R, EBUS guided fine-needle aspiration: No metastatic carcinoma identified Non-necrotizing granulomatous inflammation C. Lymph node, station 10L, EBUS guided fine-needle aspiration: No metastatic carcinoma identified (see comment) Non-necrotizing granulomatous inflammation D. Lymph node, station 4R, EBUS guided fine-needle aspiration: No metastatic carcinoma identified Non-necrotizing granulomatous inflammation 01/09/2025 4:[address] [facility] at 1610 CDT Comment Immunostains and special stains, performed at the outside institution and submitted for review, are negative for marion-cytokeratin, acid fast (AFB) and fungal organisms (GMS) while CD163 highlights background histiocytes. 01/09/2025 4:10 PM CDT [facility] Disclaimer "Some tests reported here may have been developed and performance characteristics determined by [facility] Pathology and Laboratory Medicine. These tests have not been specifically cleared or approved by the U.S. Food and Drug Administration. If applicable, controls were reviewed and showed appropriate reactivity." 01/09/2025 4:10 PM CDT [facility] Tissue 08/11/2024 01/05/2025 12: 26 PM CDT Zak Savage MD LAB PATHOLOGY ORDERABLES Final Result [facility] [place] [address], [place] * OSI CT CHEST ABDOMEN PELVIS (07/12/2024 4:41 PM PAINTER SET) Narrative Systemgenerated, Documentation - 01/05/2025 4:41 PM CDT Study acquired at another institution. For comparison only. No [facility] originated interpretation requested or available. Ester Iraheta MD IMG OUTSIDE IMAGE ORDERABLES Final Result * OSI Chest (05/12/2024 8:50 PM CDT) Narrative Systemgenerated, Documentation - 01/05/2025 8:50 PM CDT Study acquired at another institution. For comparison only. No [facility] originated interpretation requested or available. Ester Iraheta MD IMG OUTSIDE IMAGE ORDERABLES Final Result after 04/24/2024 Insurance [place]IC[place] MED[place] AND B [facility] [place] Advance Directives * Full Code (Latest Code Status on File) Date Activated Date Inactivated Comments 02/08/2025 12:31 PM Update based on Advanced Directive Documentation * Full Code Date Activated Date Inactivated Comments 01/14/2025 2:53 PM 02/08/2025 12:16 PM Update base d on Advanced Directive Documentation Care Teams Vulnerability Researcher Relationship Specialty Start Date End Date Luís Saldana MD [address] [place] [address] [place] [address] [email or web address] PCP - External Referring Hematology and Oncology 01/01/25 Ester Iraheta MD [address] [place] [phone] [email or web address] PCP - General Thoracic Medicine 01/02/25 Lauryn Ramirez RN [address] [place] [phone] [email or web address] Intake Nurse Navigator Nursing 01/02/25 01/15/25 Erick Carson RN [address] [place] [phone] [email or web address] Treatment Nurse Navigator Nursing 01/16/25 Angela Morales MD [address] [place] [phone] [email or web address] Consulting Physician Ophthalmology 02/01/25 Althea Iglesias MD [address] [place] [phone] [email or web address] Consulting Physician Pulmonary Medicine 02/06/25
[2025-04-24] MEDS ORDERED: BISACODYL 10 MG RECTAL SUPP ONE (06:16)
[2025-04-24] MEDS ORDERED: NA CHLORIDE 0.9% 2,000 ML ONE (06:17)
[2025-04-24] MEDS ORDERED: CIPROFLOXACIN 400mg IV 400 MG/200 ML BAG IV ONE (06:17)
[2025-04-24] MEDS ORDERED: METRONIDAZOLE 500mg IVPB 500 MG/100 ML BAG IV ONE (06:18)
[2025-04-24] MEDS ORDERED: LACTULOSE 20 GM/30 ML UCUP ONE (06:18)
[2025-04-24] MEDS ORDERED: LORazepam 2 MG/ML VIAL ONE (06:31)
[2025-04-24 06:41] LABS: ALT/SGPT 31.0 U/L (16-61); AST/SGOT 23.0 U/L (15-37); Albumin 3.0 g/dL (3.4-5.0); Albumin/Globulin Ratio 0.8 (1.1-1.8); Alkaline Phosphatase 63.0 U/L (45-117); Anion Gap 11.5 mEq/L (5.0-15.0); BUN Blood Urea Nitrogen 8.0 mg/dL (7-18); Globulin 3.7 g/dL (2.3-3.5); Glucose Level 138.0 mg/dL (74-106); Lipase 20.0 U/L (13-75); Magnesium 1.8 mg/dL (1.6-2.4); Potassium 3.5 mEq/L (3.5-5.1)
[2025-04-24 06:49] LABS: Absolute Lymphocytes (CBC) 0.6 K/uL (0.7-4.9); Hematocrit 32.9 % (39.6-49.0); Hemoglobin 11.1 g/dL (13.6-17.9); MCH 31.0 pg (27.0-35.0); MCHC 33.9 g/dL (32.0-36.0); MCV 91.5 fL (80-100); MPV 7.2 fL (7.6-11.3); Nucleated RBC Absolute Count 0.0 (0-0); Nucleated Red Blood Cells % 0.1 % (0-0); RBC Red Blood Cell Count 3.60 M/uL (4.33-5.43); White Blood Count 4.00 thou/uL (4.3-10.9)
--- NOTE | 2025-04-24 07:43 | RAD REPORT ---
EXAMINATION: ONE VIEW CHEST XR CLINICAL INDICATION: Male, 75 years old.,ABDOMINAL DISTENTION TECHNIQUE: Frontal chest projection is submitted. Examination is limited by patient positioning and t echnique. COMPARISON: No prior exam. FINDINGS: The lungs are mildly hyperinflated. Reticular bibasilar opacities, suggesting atelectasis or scarring . Right chest wall Port-A-Cath in place with catheter tip at the upper cavoatrial junction. No pneumothorax or sizable effusion. The heart is normal in size. Mediastinal contours are unremarkable. IMPRESSION: No acute intrathoracic abnormalities. Bibasilar atelectasis or scarring.
--- NOTE | 2025-04-24 08:00 | RAD REPORT ---
EXAMINATION: CT Abdomen Pelvis W Contrast CLINICAL INDICATION: Male, 75 years old. Abd/rectal pain;Constipation TECHNIQUE: CT abdomen and pelvis was performed, after the administration of IV contrast, as per [facility] protocol. Axial, sagittal and coronal reconstructions were obtained. One or more of the following dose reduction techniques were used: Automated exposure control, adjustment of the mA and k V according to patient size, and iterative reconstruction. Unless otherwise specified, incidental findings do not require dedicated imaging follow-up. COMPARISON: No prior exam. FINDINGS: LOWER CHEST: Right small layering pleural effusion. Reticular and mild groundglass right basilar airs pace opacities. LIVER: Normal in size and contour. No focal lesion. BILIARY SYSTEM: No suspicious abnormalities. SPLEEN: Normal size. No focal lesion. PANCREAS: No mass, ductal dilation, or josefina-pancreatic fluid. ADRENALS: BILATERAL small nodules measuring 12 mm in the left and 11 mm on the right. KIDNEYS: Normal size and contour. No hydronephrosis. URINARY BLADDER: Unremarkable. GASTROINTESTINAL TRACT: Fluid opacification within nondistended distal small bowel and most of the la rge bowel. Mild to moderate stool burden along the rectum. Fat stranding along the rectal adventitia and presacral space. Mild colonic diverticulosis. No evidence of free air, significant int ra-abdominal free fluid, bowel obstruction or abscess. APPENDIX: Appendix not visualized, but no inflammatory changes in region of appendix. LYMPH NODES: No lymphadenopathy. MUSCULOSKELETAL: No acute or suspicious osseous abnormality. ADDITIONAL FINDINGS: None. IMPRESSION: Reticular and mild groundglass opacities at the right base with small effusion, suggesting a mild inf ectious or inflammatory process such as pneumonia. Fluid opacification throughout nondistended distal small bowel and large bowel, may relate to diarrhe al state. Mild stool burden in the rectum with mild perirectal and presacral fat stranding, may relate to stercoral proctitis. Other incidental findings including small bilateral adrenal nodules. Adrenal Incidental Indeterminate , CT W/C, > 1 - 2 cm, < 130 HU, Homogeneous: Contrast portal venous phase CT, Incidental Indeterminate Adrenal Mass > 1 - 2 cm, < 130 HU, Homogene ous: Probable benign adenoma. Recommend 1 year follow up adrenal washout CT. If stable for > 1 year, no further f/u imaging. These guidelines do not apply to patients younger than 18 years, patients with cancer, and patients w ith any clinical suspicion of a functioning adrenal lesion. Reference: TAYLORR 2017 Mar; 14(8):1038-44, JCAT 2016 Oct-Nov; 40(2):194-200
--- NOTE | 2025-04-24 09:10 | ER ---
Nurse's Notes [facility] Name: Domingo Mckeon Age: 75 yrs Sex: Male : 1950 Arrival Date: 04/24/2025 Time: 05:34 Bed 7 Private MD: Diagnosis: Constipation, unspecified-RECTAL PAIN;Slow transit constipation Presentation: 04/24 05:50 Chief complaint: Patient states: ABDOMINAL AND RECTAL PAIN FOR 3 DAYS. Coronavirus jj7 screen: At this time, the client does not indicate any symptoms associated with coronavirus-19. Ebola Screen: No symptoms or risks identified at this time. Initial Sepsis Screen: Does the patient meet any 2 criteria? No. Patient's initial sepsis screen is negative. Does the patient have a suspected source of infection? No. Patient's initial sepsis screen is negative. Risk Assessment: Do you want to hurt yourself or someone else? Patient reports no desire to harm self or others. Onset of symptoms was April 21, 2025. 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 jj7 Triage Assessment: 05:50 General: Appears in no apparent distress. comfortable, Behavior is calm, cooperative, jj7 appropriate for age. Pain: Complains of pain in rectum and abdomen. EENT: No deficits noted. Neuro: No deficits noted. Cardiovascular: No deficits noted. Respiratory: No deficits noted. GI: Reports lower abdominal pain, upper abdominal pain, incontinence, rectal pain. : No deficits noted. Derm: No deficits noted. Musculoskeletal: No deficits noted. Historical: - Allergies: 06:00 No Known Allergies; jj7 - PMHx: 06:00 LUNG CANCER; jj7 - PSHx: 06:00 Appendectomy; Cholecystectomy; LUNG; BACK; jj7 - Immunization history:: Adult Immunizations up to date. - Infectious Disease History:: Denies. - Social history:: Smoking status: Patient denies any tobacco usage or history of. Patient/guardian denies using alcohol, street drugs, IV drugs. Screenin:02 [facility] ED Fall Risk Assessment (Adult) History of falling in the last 3 months, ha1 including since admission Yes- single mechanical fall (1 pt) Confusion or Disorientation No (0 pts) Intoxicated or Sedated No (0 pts) Impaired Gait Yes (1 pt) Mobility Assist Device Used No (0 pt) Altered Elimination No (0 pt) Score/Fall Risk Level 0 - 2 = Low Risk Oriented to surroundings, Maintained a safe environment, Educated pt \T\ family on fall prevention, incl call for assistance when getting out of bed, Hourly rounding (assess needs \T\ fall precautionary measures) done. Abuse screen: Denies threats or abuse. Denies injuries from another. Nutritional screening: No deficits noted. Tuberculosis screening: No symptoms or risk factors identified. Assessment: 05:48 General: Appears uncomfortable, Behavior is calm, cooperative. Pain: Complains of pain ha1 in abdomen Pain currently is 7 out of 10 on a pain scale. Quality of pain is described as aching. Neuro: Level of Consciousness is awake, alert, obeys commands, Oriented to person, place, time, situation. Cardiovascular: Capillary refill < 3 seconds Patient's skin is warm and dry. Respiratory: Airway is patent Respiratory effort is even, unlabored, Respiratory pattern is regular, symmetrical. GI: Abdomen is round non-distended, Reports cramping, diarrhea. : No signs and/or symptoms were reported regarding the genitourinary system. Derm: Skin is normal. Musculoskeletal: No signs and/or symptoms reported regarding the musculoskeletal system. Circulation, motion, and sensation intact. Range of motion: intact in all extremities. 06:32 Reassessment: Patient and/or family updated on plan of care and expected duration. Pain ha1 level reassessed. 07:00 Reassessment: No changes from previously documented assessment. Patient is alert, bp oriented x 3, equal unlabored respirations, skin warm/dry/pink. 09:00 Reassessment: DC ON HOLD FOR ABX AND IVF. bp Vital Signs: 05:50 BP 119 / 79; Pulse 90; Resp 18; Pulse Ox 99% ; Weight 72.57 kg; Height 5 ft. 9 in. ; jj7 Pain 10/10; 06:15 BP 114 / 75; Pulse 94; Resp 18 S; Pulse Ox 99% on R/A; ha1 07:00 BP 76 / 45; Pulse 56; Resp 14; Pulse Ox 95% ; bp 08:00 BP 97 / 61; Pulse 81; Resp 15; Pulse Ox 94% ; bp 11:33 BP 94 / 68; Pulse 75; Resp 16; Pulse Ox 95% ; bp 05:50 Body Mass Index 23.63 (72.57 kg, 175.26 cm) j7 05:50 Pain Scale: Adult [facility] ED Course: 05:40 Patient arrived in ED. gm2 05:41 Corby Davis PA-C is PHCP. cp 05:41 Corby Cortés MD is Attending Physician. cp 05:48 Patient has correct armband on for positive identification. Placed in gown. Bed in low ha1 position. Call light in reach. Side rails up X2. Adult w/ patient. 05:48 Provided Education on: plan of care . Client placed on continuous cardiac and pulse ha1 oximetry monitoring. NIBP monitoring applied. 05:50 Arm band placed on right wrist. Patient placed in an exam room, on a stretcher. j7 05:59 Triage completed. jj7 06:02 Warm blanket given. jj7 06:08 Inserted saline lock: 22 gauge in right forearm, using aseptic technique. Blood lg3 collected. Flushed with 10 mL NS. 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 lg3 06:25 XRAY Chest (1 view) In Process Unspecified. EDMS 06:32 Assisted to bedside commode. ha1 07:09 Attending Physician role handed off by Corby Cortés MD rn 07:09 Ravin Greco MD is Attending Physician. rn 07:12 CT Abd/Pelvis - PO and IV Contrast In Process Unspecified. EDMS 07:12 Seamus Sandoval, RN is Primary Nurse. bp 09:09 Javier Hodges MD is Referral Physician. rn 11:33 IV discontinued, intact, bleeding controlled, No redness/swelling at site. Pressure bp dressing applied. Administered Medications: 06:35 Drug: Lactulose PO 60 grams 45 ml PO once Volume: 45 ml; Route: PO; ha1 11:36 Follow up: Response: No adverse reaction bp 06:38 Drug: metroNIDAZOLE IVPB 500 mg 100 ml IVPB at 200 ml/hr once over 30 mins Volume: 100 ha1 ml; Route: IVPB; Rate: 200 ml/hr; Infused Over: 30 mins; Site: right forearm; 11:34 Follow up: IV Status: Completed infusion bp 06:39 Drug: NS 0.9% IV 1000 ml IV at 1 bolus Per protocol; to be given as a bolus over 60 ha1 minutes Route: IV; Rate: 1 bolus; Site: right forearm; 11:34 Follow up: IV Status: Completed infusion bp 06:39 Drug: Ativan IVP 1 mg IVP once Route: IVP; Site: right forearm; ha1 11:34 Follow up: Response: No adverse reaction bp 06:40 Drug: Dulcolax SC Suppository 10 mg SC once Route: SC; ha1 11:36 Follow up: Response: No adverse reaction bp 08:00 Drug: NS 0.9% IV 1000 ml IV at 1000 ml once; to be given as a bolus over 120 minutes bp Route: IV; Rate: 1000 ml; Site: right forearm; 11:36 Follow up: IV Status: Completed infusion bp 08:16 Drug: Ciprofloxacin IVPB 400 mg 200 ml IVPB once over 60 mins Volume: 200 ml; Route: bp IVPB; Infused Over: 60 mins; Site: right forearm; 11:34 Follow up: IV Status: Completed infusion bp Medication: 06:03 VIS not applicable for this client. ha1 Outcome: 09:09 Discharge ordered by . rn 11:33 Discharged to home via wheelchair, with family, bp 11:33 Condition: stable 11:33 Discharge instructions given to patient, family, Instructed on discharge instructions, follow up and referral plans. medication usage, Demonstrated understanding of instructions, follow-up care, medications, Prescriptions given X 4, 11:36 Patient left the ED. bp Signatures: Dispatcher [employer] EDMS Ravin Greco MD MD rn Page, Corey, PA-C PA-C Seamus Pepe RN RN bp Melissa Aguillon RN RN lg3 Greta French RN RN ha1 Jose Olivier RN RN faithjMichela Spence gm2 Corrections: (The following items were deleted from the chart) 11:34 11:33 Discharge instructions given to patient, family, Instructed on discharge bp instructions, follow up and referral plans. medication usage, Demonstrated understanding of instructions, follow-up care, medications, Prescriptions given X 1, bp
--- NOTE | 2025-04-24 09:10 | EDPHYS ---
Physician Documentation [facility] Name: Domingo Mckeon Age: 75 yrs Sex: Male : 1950 Arrival Date: 04/24/2025 Time: 05:34 Bed 7 Private MD: ED Physician Ravin Greco HPI: 04/24 06:08 This 75 yrs old Male presents to ER via Wheelchair with complaints of Rectal steven Pain, BOWEL ISSUE. 06:08 The patient presents to the emergency department with pain in the rectal area, that is steven moderate. Onset: The symptoms/episode began/occurred 2 day(s) ago. Historical: - Allergies: 06:00 No Known Allergies; jj7 - PMHx: 06:00 LUNG CANCER; jj7 - PSHx: 06:00 Appendectomy; Cholecystectomy; LUNG; BACK; jj7 - Immunization history:: Adult Immunizations up to date. - Infectious Disease History:: Denies. - Social history:: Smoking status: Patient denies any tobacco usage or history of. Patient/guardian denies using alcohol, street drugs, IV drugs. ROS: 06:09 Constitutional: Negative for fever, chills, and weight loss, Eyes: Negative for injury, steven pain, redness, and discharge, ENT: Negative for injury, pain, and discharge, Neck: Negative for injury, pain, and swelling, Cardiovascular: Negative for chest pain, palpitations, and edema, Respiratory: Negative for shortness of breath, cough, wheezing, and pleuritic chest pain, Back: Negative for injury and pain, : Negative for injury, bleeding, discharge, and swelling, MS/Extremity: Negative for injury and deformity, Skin: Negative for injury, rash, and discoloration, Neuro: Negative for headache, weakness, numbness, tingling, and seizure, Psych: Negative for depression, anxiety, suicide ideation, homicidal ideation, and hallucinations, Allergy/Immunology: Negative for hives, rash, and allergies, Endocrine: Negative for neck swelling, polydipsia, polyuria, polyphagia, and marked weight changes, Hematologic/Lymphatic: Negative for swollen nodes, abnormal bleeding, and unusual bruising, 06:09 Abdomen/GI: Positive for constipation, Exam: 06:09 Constitutional: This is a well developed, well nourished patient who is awake, alert, steven and in no acute distress. Head/Face: Normocephalic, atraumatic. Eyes: Pupils equal round and reactive to light, extra-ocular motions intact. Lids and lashes normal. Conjunctiva and sclera are non-icteric and not injected. Cornea within normal limits. Periorbital areas with no swelling, redness, or edema. ENT: Nares patent. No nasal discharge, no septal abnormalities noted. Tympanic membranes are normal and external auditory canals are clear. Oropharynx with no redness, swelling, or masses, exudates, or evidence of obstruction, uvula midline. Mucous membranes moist. Neck: Trachea midline, no thyromegaly or masses palpated, and no cervical lymphadenopathy. Supple, full range of motion without nuchal rigidity, or vertebral point tenderness. No Meningismus. Chest/axilla: Normal chest wall appearance and motion. Nontender with no deformity. No lesions are appreciated. Cardiovascular: Regular rate and rhythm with a normal S1 and S2. No gallops, murmurs, or rubs. Normal PMI, no JVD. No pulse deficits. Respiratory: Lungs have equal breath sounds bilaterally, clear to auscultation and percussion. No rales, rhonchi or wheezes noted. No increased work of breathing, no retractions or nasal flaring. Back: No spinal tenderness. No costovertebral tenderness. Full range of motion. Male : Normal genitalia with no discharge or lesions. Skin: Warm, dry with normal turgor. Normal color with no rashes, no lesions, and no evidence of cellulitis. MS/ Extremity: Pulses equal, no cyanosis. Neurovascular intact. Full, normal range of motion., bilateral aka Neuro: Awake and alert, GCS 15, oriented to person, place, time, and situation. Cranial nerves II-XII grossly intact. Motor strength 5/5 in all extremities. Sensory grossly intact. Cerebellar exam normal. Normal gait. Psych: Awake, alert, with orientation to person, place and time. Behavior, mood, and affect are within normal limits. 06:09 Abdomen/GI: Inspection: abdomen appears normal, Bowel sounds: normal, Palpation: abdomen is soft and non-tender, Rectal exam: rectal tone normal, Stool: normal, hemorrhoid(s), are not appreciated, mass, is not appreciated, swelling, is not appreciated, Liver: no appreciated palpable abnormalities, Hernia: not appreciated, Vital Signs: 05:50 BP 119 / 79; Pulse 90; Resp 18; Pulse Ox 99% ; Weight 72.57 kg; Height 5 ft. 9 in. ; jj7 Pain 10/10; 06:15 BP 114 / 75; Pulse 94; Resp 18 S; Pulse Ox 99% on R/A; ha1 07:00 BP 76 / 45; Pulse 56; Resp 14; Pulse Ox 95% ; bp 08:00 BP 97 / 61; Pulse 81; Resp 15; Pulse Ox 94% ; bp 11:33 BP 94 / 68; Pulse 75; Resp 16; Pulse Ox 95% ; bp 05:50 Body Mass Index 23.63 (72.57 kg, 175.26 cm) jj7 05:50 Pain Scale: Adult jj7 MDM: 05:49 Medical Screening Exam initiated cp 06:12 Test considered but Not performed: Ultrasound no abd usg. steven 07:09 Transition of care: Care assumed from Corby Cortés MD. rn 08:31 Differential diagnosis: Constipation, fecal impaction, stercoral proctitis, rn dehydration. Data reviewed: vital signs, nurses notes, lab test result(s), radiologic studies, CT scan, and as a result, I will discharge patient. Consideration of Admission/Observation Escalation of care including admission/observation considered. Escalation with admission considered but spouse states that this is his normal blood pressure and patient states feels much better and constipation is improving with multiple bowel movements here. Independent interpretation of the following test(s) in the Emergency Department EKG: See my EKG interpretation above X-Ray: My interpretation is Chest x-ray images show right lower lobe infiltrate/scarring per my interpretation. CT Scan: My interpretation is CT abdomen images show distended bladder and rectal distention with stool per my interpretation. Care significantly affected by the following chronic conditions: Lung cancer. Counseling: I had a detailed discussion with the patient and/or guardian regarding the historical points, exam findings, and any diagnostic results supporting the discharge/admit diagnosis, lab results, radiology results, the need for outpatient follow up, to return to the emergency department if symptoms worsen or persist or if there are any questions or concerns that arise at home. Response to treatment: the patient's symptoms have markedly improved after treatment, and as a result, I will discharge patient. Special discussion: I discussed with the patient/guardian in detail that at this point there is no indication for admission to the hospital. It is understood, however, that if the symptoms persist or worsen the patient needs to return immediately for re-evaluation. Based on the history and exam findings, there is no indication for further emergent testing or inpatient evaluation. I discussed with the patient/guardian the need to see the tapper shank/oncologist for further evaluation of the symptoms. I discussed with the patient/guardian the need to see the primary care provider for further evaluation of the symptoms. ED course: CT imaging shows possible pneumonia on imaging as well as constipation. No other acute findings. Patient has had several large bowel movements since arrival here and medication. Feels much better. Spoke to spouse regarding blood pressure in the 90s and she states his blood pressure is normally in this range. Patient is actually taking midodrine, started last . Patient was also just released and taken off of antibiotics for pneumonia so I believe the findings on the imaging is improvement with resolution or resolving pneumonia and not a new infection. Patient feels much better and chief complaint was constipation, anticipate discharge home. ED course: Patient has appointment with oncologist on Wednesday.. 04/24 05:58 Order name: CBC with Diff; Complete Time: 06:50 cp 04/24 05:58 Order name: CMP; Complete Time: 06:50 cp 04/24 05:58 Order name: Lipase; Complete Time: 06:50 cp 04/24 05:58 Order name: Magnesium; Complete Time: 06:50 cp 04/24 05:58 Order name: XRAY Chest (1 view); Complete Time: 08:02 cp 04/24 06:08 Order name: CT Abd/Pelvis - PO and IV Contrast; Complete Time: 08:02 steven 04/24 05:58 Order name: IV Saline Lock; Complete Time: 06:24 cp 04/24 05:58 Order name: Labs collected and sent; Complete Time: 06:24 cp Administered Medications: 06:35 Drug: Lactulose PO 60 grams 45 ml PO once Volume: 45 ml; Route: PO; ha1 11:36 Follow up: Response: No adverse reaction bp 06:38 Drug: metroNIDAZOLE IVPB 500 mg 100 ml IVPB at 200 ml/hr once over 30 mins Volume: 100 ha1 ml; Route: IVPB; Rate: 200 ml/hr; Infused Over: 30 mins; Site: right forearm; 11:34 Follow up: IV Status: Completed infusion bp 06:39 Drug: NS 0.9% IV 1000 ml IV at 1 bolus Per protocol; to be given as a bolus over 60 ha1 minutes Route: IV; Rate: 1 bolus; Site: right forearm; 11:34 Follow up: IV Status: Completed infusion bp 06:39 Drug: Ativan IVP 1 mg IVP once Route: IVP; Site: right forearm; ha1 11:34 Follow up: Response: No adverse reaction bp 06:40 Drug: Dulcolax [place] Suppository 10 mg [place] once Route: [place]; ha1 11:36 Follow up: Response: No adverse reaction bp 08:00 Drug: NS 0.9% IV 1000 ml IV at 1000 ml once; to be given as a bolus over 120 minutes bp Route: IV; Rate: 1000 ml; Site: right forearm; 11:36 Follow up: IV Status: Completed infusion bp 08:16 Drug: Ciprofloxacin IVPB 400 mg 200 ml IVPB once over 60 mins Volume: 200 ml; Route: bp IVPB; Infused Over: 60 mins; Site: right forearm; 11:34 Follow up: IV Status: Completed infusion bp Disposition Summary: 04/24/25 09:09 Discharge Ordered Notes: Location: Home rn Problem: new rn Symptoms: have improved rn Condition: Stable rn Diagnosis - Constipation, unspecified - RECTAL PAIN rn - Slow transit constipation rn Followup: steven - With: Private Physician - When: 2 - 3 days - Reason: Recheck today's complaints, Continuance of care, Re-evaluation by your physician Followup: steven - With: Javier Hodges MD - When: 2 - 3 days - Reason: Recheck today's complaints, Re-evaluation by your physician Discharge Instructions: - Discharge Summary Sheet steven - Constipation, Adult steven - How to Take a Sitz Bath steven - Constipation, Adult, [id number] steven Forms: - Medication Reconciliation Form rn - Antibiotic early learning teacher - Prescription Opioid Use rn - Patient Portal Instructions rn - Leadership Thank You Letter rn Prescriptions: - Dulcolax (bisacodyl) 10 mg Rectal suppository - insert 1 suppository RECTAL route daily; 20 suppository; Refills: 0, Product steven Selection Permitted - Cipro 250 mg Oral tablet - take 1 tablet ORAL route every 12 hours; 14 tablet; Refills: 0, Product steven Selection Permitted - Flagyl 500 mg Oral tablet - take 1 tablet ORAL route every 8 hours for 7 days; 21 tablet; Refills: 0, [facility] Product Selection Permitted - Lactulose 10 gram/15 mL Oral solution - take 30 milliliters ORAL route every 12 hours; 300 milliliter; Refills: 0, [facility] Product Selection Permitted Signatures: Dispatcher [employer] [facility] Corby Cortés MD MD cha Nieto, Roman, MD MD rn Page, Corey, PA-C PA-C cp Peltier, Brian RN RN Greta Renner RN RN ha1 Jose Olivier RN RN jj7 Corrections: (The following items were deleted from the chart) 05:59 05:59 CBC+H.LAB.BRZ ordered. [facility] EDMS 05:59 05:59 COMPREHENSIVE METABOLIC PANEL+C.LAB.BRZ ordered. [facility] EDMS 05:59 05:59 LIPASE+C.LAB.BRZ ordered. [facility] EDMS 05:59 05:59 LACTATE+C.LAB.BRZ ordered. [facility] EDMS 05:59 05:59 MAGNESIUM+C.LAB.BRZ ordered. [facility] EDMS 05:59 05:59 Chest Single View+RAD.RAD.BRZ ordered. [facility] EDMS 05:59 05:59 Abdomen Pelvis W Con+CT.RAD.BRZ ordered. [facility] EDMS 06:08 06:08 Abdomen Pelvis W Con+CT.RAD.BRZ ordered. [facility] 08:34 06:12 Data reviewed: vital signs, nurses notes, lab test result(s), radiologic studies, rn CT scan, [facility] 06:12 Differential diagnosis: hemorrhoids, steven rn 06:12 Consideration of Admission/Observation Escalation of care including cad intern/observation considered. [facility] 06:12 I considered the following discharge prescriptions or medication management in rn the emergency department Medications were administered in the Emergency Department. See ETELVINA [facility] 06:12 Independent interpretation of the following test(s) in the Emergency Department rn CT Scan: My interpretation is ct ab/pel. [facility] 06:12 Care significantly affected by the following chronic conditions: lung ca. steven shirley 06:12 Historians other than the Patient: Spouse/Significant Other: , son. steven shirley 08:34 06:12 Counseling: I had a detailed discussion with the patient and/or guardian rn regarding the historical points, exam findings, and any diagnostic results supporting the discharge/admit diagnosis, lab results, radiology results, the need for outpatient follow up, for definitive care, a family practitioner, a general surgeon, steven
[2025-04-24 13:42] VITALS: BP 94/68; O2SAT 95
== END 2025-04-24 11:36 | disposition home or self-care (01) ==
LOC: ER 05:34
DX: K59.01 Slow transit constipation (principal)
CPT/HCPCS: 85025; 36415; 83735; 83690; 80053; 74177; 71045; Q9967; J0744; J7030